=== PATIENT | female | born 1950 | race American Indian/Alaskan Native ===

== ENCOUNTER 2017-05-27 15:45 | Inpatient (IN) | payer MEDICARE, OTHER ==
[2017-05-27] MEDS ORDERED: ZOFRAN IV PRN (18:52)
[2017-05-27] MEDS ORDERED: TYLENOL PO PRN (18:52)
[2017-05-27] MEDS ORDERED: PROVENTIL IH PRN (18:52)
[2017-05-27] MEDS ORDERED: DULCOLAX PR PRN (18:52)
--- NOTE | 2017-05-27 18:54 | History and Physical Report ---
History of Present Illness Date of admission: 05/27/17 17:01 Chief complaint: I feel sick, I just dont feel good History of present illness: 66 YO female with SLE, CAD S/P Stent Placement, HTN, HLD, Hypothyroidism, Renal Failure S/P allograft renal transplant, DVT admitted directly to hospitalist service at the request of Dr. Patel for evaluation of suspected SLE flare. Pt seen and evaluated in [facility] upon arrival. Pt denies fever, chills, CP, palpitaitons, NVD, Syncope, BRBPR, skin rashes, productive cough or recent ill contacts. Past History Past Medical History: CAD, hypertension, hyperlipidemia, other (SLE) Past Surgical History: Other (renal transplant, stent) Social history: , lives with family. denies: smoking, alcohol abuse, prescription drug abuse, IV drug use Family history: hypertension Medications and Allergies Allergies Allergy/AdvReac Type Severity Reaction Status Date / Time Penicillins AdvReac Itching Verified 10/31/13 14:12 Home Medications Medication Instructions Recorded Confirmed Last Taken Type ALBUTEROL NEB's [Proventil 0.083% 2.5 mg INHALATION Q4HR PRN 10/31/13 10/31/13 Unknown History NEBS] Aspirin [Aspirin BABY CHEW TAB] 81 mg PO DAILY 10/31/13 10/31/13 Unknown History Clopidogrel Bisulfate [Plavix] 75 mg PO DAILY 10/31/13 10/31/13 Unknown History Digoxin [Lanoxin] 125 mcg PO DAILY 10/31/13 10/31/13 Unknown History Furosemide [Lasix] 40 mg PO DAILY 10/31/13 10/31/13 Unknown History Levothyroxine [Synthroid] 125 mcg PO DAILY 10/31/13 10/31/13 Unknown History Nitroglycerin [Nitrostat] 0.4 mg SL Q15MIN PRN 10/31/13 10/31/13 Unknown History Oxycodone HCl/Acetaminophen 1 tab PO Q4HR PRN 10/31/13 10/31/13 Unknown History [Endocet 10-325 mg] Potassium Chloride [K-Dur] 20 meq PO DAILY 10/31/13 10/31/13 Unknown History Venlafaxine [Effexor] 75 mg PO DAILY 10/31/13 10/31/13 Unknown History Warfarin Sodium [Coumadin] 7.5 mg PO 2XW 10/31/13 10/31/13 Unknown History Warfarin [Coumadin] 5 mg PO 5XW 10/31/13 10/31/13 Unknown History Zolpidem [Ambien] 10 mg PO QHS 10/31/13 10/31/13 Unknown History amLODIPine [Norvasc] 10 mg PO DAILY 10/31/13 10/31/13 Unknown History metFORMIN [Glucophage] 500 mg PO DAILY 10/31/13 10/31/13 Unknown History traZODone [Desyrel] 50 mg PO QHS PRN 11/01/13 11/01/13 Unknown History Review of Systems Constitutional: weakness, no weight gain, no fever, no chills, no sweats Ears, nose, mouth and throat: no ear pain, no ear discharge, no tinnitis, no decreased hearing, no nose pain, no nasal congestion Breasts: no change in shape, no swelling, no mass Cardiovascular: no chest pain, no orthopnea, no palpitations, no rapid/ irregular heart beat, no edema Respiratory: no cough, no cough with sputum, no excessive sputum, no hemoptysis , no shortness of breath Gastrointestinal: no abdominal pain, no nausea, no vomiting, no diarrhea, no constipation Genitourinary Female: no dyspareunia, no urgency, no incomplete emptying Rectal: no pain, no incontinence, no bleeding Musculoskeletal: no neck stiffness, no neck pain, no shooting arm pain, no arm numbness/tingling Integumentary: no rash, no pruritis, no redness, no sores, no wounds, no jaundice, no boils Neurological: no head injury, no weakness, no parathesias, no numbness Psychiatric: no anxiety, no memory loss, no change in sleep habits, no sleep disturbances, no insomnia Endocrine: no cold intolerance, no heat intolerance, no polyphagia Hematologic/Lymphatic: no easy bruising, no easy bleeding Allergic/Immunologic: no urticaria, no allergic rhinitis, no wheezing Exam - Constitutional General appearance: Present: mild distress - EENT Eyes: Present: PERRL ENT: hearing intact, clear oral mucosa - Neck Neck: Present: supple, normal ROM - Respiratory Respiratory: bilateral: diminished - Cardiovascular Heart Sounds: Present: S1 & S2. Absent: rub, click - Extremities Extremities: pulses symmetrical, No edema Peripheral Pulses: within normal limits - Abdominal General gastrointestinal: Present: soft, non-tender, non-distended, normal bowel sounds Female genitourinary: Present: normal - Integumentary Integumentary: Present: clear, warm, dry - Musculoskeletal Musculoskeletal: generalized weakness - Psychiatric Psychiatric: appropriate mood/affect, intact judgment & insight - Neurologic Neurologic: CNII-XII intact, moves all extremities Results - Labs CBC & Chem 7: 05/27/17 22:00 05/27/17 22:00 Assessment and Plan - Patient Problems (1) Lupus (systemic lupus erythematosus) Current Visit: Yes Status: Acute Qualifiers: Systemic lupus erythematosus type: S Systemic lupus erythematosus organ involvement: S Plan to address problem: Acute Flare: IVF, Steroids, pain control, continue medical management, CBC, CMP , EKG, supportive care. (2) Hyperlipidemia Current Visit: No Status: Chronic Qualifiers: Hyperlipidemia type: H Plan to address problem: continue statin therapy (3) Hypertension Current Visit: No Status: Chronic Qualifiers: Hypertension type: H Plan to address problem: Monitor bp q shift, resume home medication (4) Diabetes Current Visit: Yes Status: Acute Qualifiers: Diabetes mellitus type: D Diabetes mellitus complication status: D Diabetes mellitus complication detail: D Diabetic retinopathy severity: D Proliferative retinopathy type: P Diabetes mellitus macular edema: D Diabetes mellitus chcf insulin use: D Laterality: L Chronic kidney disease stage: C Plan to address problem: ADA diet, insulin, accu check (5) DVT prophylaxis Current Visit: Yes Status: Acute
[2017-05-27] MEDS ORDERED: DILAUDID IV ONE (20:12)
--- NOTE | 2017-05-27 20:46 | XRay Report ---
FINAL REPORT EXAM: XR CHEST 1V AP HISTORY: dypsnea TECHNIQUE: AP portable view of the chest. PRIORS: None. FINDINGS: There is a right-sided Port-A-Cath with the tip at the SVC right atrial junction. The cardiac silhouette is [id number] enlarged. The pulmonary vascularity appears normal. The lungs are clear. The bones and soft tissues are unremarkable. IMPRESSION: [id number] cardiomegaly. No evidence of acute CHF.
[2017-05-27] MEDS ORDERED: PERCOCET 5/325 PO PRN (22:04)
--- NOTE | 2017-05-27 22:14 | Consultation ---
History of Present Illness - Reason for Consult Consult date: 05/27/17 hypercoag Requesting physician: KEITH WEBER - History of Present Illness Thank you for this consult, patient seen/examined, record reviewed, case d/w her and her spouse at the bed side. kindly ased to see for the reasons above. She had presented to the office with geralized weakness, diffuse joint pain.Hx of SLE, now with flare up. Hx of renal transplant.SLE related pain. Past History Past Medical History: arthritis, CAD, diabetes, hypothyroidism, migraines Past Surgical History: Other (stent.) Medications and Allergies Allergies Allergy/AdvReac Type Severity Reaction Status Date / Time Penicillins AdvReac Itching Verified 10/31/13 14:12 Home Medications Medication Instructions Recorded Confirmed Last Taken Type ALBUTEROL NEB's [Proventil 0.083% 2.5 mg INHALATION Q4HR PRN 10/31/13 10/31/13 Unknown History NEBS] Aspirin [Aspirin BABY CHEW TAB] 81 mg PO DAILY 10/31/13 10/31/13 Unknown History Clopidogrel Bisulfate [Plavix] 75 mg PO DAILY 10/31/13 10/31/13 Unknown History Digoxin [Lanoxin] 125 mcg PO DAILY 10/31/13 10/31/13 Unknown History Furosemide [Lasix] 40 mg PO DAILY 10/31/13 10/31/13 Unknown History Levothyroxine [Synthroid] 125 mcg PO DAILY 10/31/13 10/31/13 Unknown History Nitroglycerin [Nitrostat] 0.4 mg SL Q15MIN PRN 10/31/13 10/31/13 Unknown History Oxycodone HCl/Acetaminophen 1 tab PO Q4HR PRN 10/31/13 10/31/13 Unknown History [Endocet 10-325 mg] Potassium Chloride [K-Dur] 20 meq PO DAILY 10/31/13 10/31/13 Unknown History Venlafaxine [Effexor] 75 mg PO DAILY 10/31/13 10/31/13 Unknown History Warfarin Sodium [Coumadin] 7.5 mg PO 2XW 10/31/13 10/31/13 Unknown History Warfarin [Coumadin] 5 mg PO 5XW 10/31/13 10/31/13 Unknown History Zolpidem [Ambien] 10 mg PO QHS 10/31/13 10/31/13 Unknown History amLODIPine [Norvasc] 10 mg PO DAILY 10/31/13 10/31/13 Unknown History metFORMIN [Glucophage] 500 mg PO DAILY 10/31/13 10/31/13 Unknown History traZODone [Desyrel] 50 mg PO QHS PRN 11/01/13 11/01/13 Unknown History Active Meds: Active Medications Acetaminophen (Tylenol) 650 mg PO Q4H PRN PRN Reason: Pain MILD(1-3)/Fever >100.5/PONCE Albuterol (Proventil) 2.5 mg IH Q4HRT PRN PRN Reason: Shortness Of Breath Bisacodyl (Dulcolax) 10 mg PA QDAY PRN PRN Reason: Constipation unrelieved by MOM Hydromorphone HCl (Dilaudid) 2 mg IV Q4HR PRN PRN Reason: Severe Pain Potassium Chloride/Dextrose/Sod Cl (D5w/0.45% Nacl/Kcl 30 Meq) 30 meq in 1,000 mls @ 75 mls/hr IV DIRECT PEPE Magnesium Hydroxide (Milk Of Magnesia) 30 ml PO Q4H PRN PRN Reason: Constipation Methylprednisolone Sodium Succinate (Solu-Medrol) 60 mg IV Q8HR PEPE Last Admin: 05/27/17 20:49 Dose: 60 mg Ondansetron HCl (Zofran) 4 mg IV Q8H PRN PRN Reason: N/V unrelieved by Reglan Oxycodone/Acetaminophen (Percocet 5/325) 2 tab PO Q6H PRN PRN Reason: Pain, Moderate (4-6) Review of Systems Constitutional: weakness, chronic pain Breasts: deferred Exam - Constitutional Vitals: Temp Pulse Resp BP Pulse Ox 99.5 F 64 20 121/65 97 05/27/17 17:49 05/27/17 17:49 05/27/17 20:45 05/27/17 17:49 05/27/17 20:41 General appearance: Present: mild distress, well-nourished - EENT Eyes: Present: PERRL ENT: hearing intact, clear oral mucosa - Neck Neck: Present: supple, normal ROM - Respiratory Respiratory effort: normal Respiratory: bilateral: CTA - Cardiovascular Heart Sounds: Present: S1 & S2. Absent: rub, click - Extremities Extremities: pulses symmetrical, No edema Peripheral Pulses: within normal limits - Abdominal General gastrointestinal: Present: soft, non-tender, non-distended, normal bowel sounds Female genitourinary: Present: deferred - Rectal Rectal Exam: deferred - Integumentary Integumentary: Present: clear, warm, dry - Musculoskeletal Musculoskeletal: gait normal, strength equal bilaterally - Psychiatric Psychiatric: appropriate mood/affect, intact judgment & insight - Neurologic Neurologic: CNII-XII intact, moves all extremities Assessment and Plan - Patient Problems (1) Chest pain at rest Current Visit: No Status: Chronic Plan to address problem: cardiology consulted. (2) Coronary artery disease Current Visit: No Status: Chronic Qualifiers: Coronary Disease-Associated Artery/Lesion type: C [place] vs. transplanted heart: N Associated angina: A Plan to address problem: cardiology consulted. (3) Lupus Current Visit: No Status: Chronic Qualifiers: Systemic lupus erythematosus type: S Systemic lupus erythematosus organ involvement: S Plan to address problem: started on steroids. (4) History of DVT (deep vein thrombosis) Current Visit: No Status: Chronic Plan to address problem: on coumadin at home, continue anticoags. (5) Renal transplant disorder Current Visit: No Status: Chronic Plan to address problem: monitor/supportive.
[2017-05-27 22:35] LABS: Hematocrit 30.7 % (30.3-42.9); Hemoglobin 10.2 gm/dl (10.1-14.3); Mean Corpuscular HGB Conc 33 % (30-34); Mean Corpuscular Hemoglobin 32 pg (28-32); Mean Corpuscular Volume 96 fl (79-97); Platelet Count 144 K/mm3 (140-440); Red Blood Count 3.19 M/mm3 (3.65-5.03); Red Cell Distribution Width 15.7 % (13.2-15.2); White Blood Count 8.2 K/mm3 (4.5-11.0)
[2017-05-27] MEDS: D5W/0.45% NACL/KCL 30 MEQ 30 MEQ/1,000 ML BAG IV SCH (22:50)
[2017-05-27 22:54] LABS: Alanine Aminotransferase 12 units/L (7-56); Albumin 3.1 g/dL (3.9-5); Albumin/Globulin Ratio 0.9 %; Alkaline Phosphatase 44 units/L (35-129); Blood Urea Nitrogen 12 mg/dL (7-17); Calcium 7.7 mg/dL (8.4-10.2); Carbon Dioxide 23 mmol/L (22-30); Glucose 151 mg/dL (65-100); Total Protein 6.5 g/dL (6.3-8.2)
[2017-05-27 22:55] LABS: Anion Gap 16 mmol/L; Chloride 108.9 mmol/L (98-107); Potassium 3.4 mmol/L (3.6-5.0); Sodium 144 mmol/L (137-145)
[2017-05-27] MEDS ORDERED: OXYCODONE HCL PO PRN (23:04)
[2017-05-27] MEDS ORDERED: DESYREL PO PRN (23:04)
[2017-05-27] MEDS ORDERED: ACETAMINOPHEN PO PRN (23:04)
[2017-05-27] MEDS ORDERED: D50W (25GM) Syringe IV PRN (23:06)
[2017-05-28 00:36] LABS: Basophils % (Manual) 0 % (0.0-1.8); Blastocytes % (Manual) 0 %; Diff Status Complete; Platelet Estimate Consistent w Auto; RBC Morphology Normal
[2017-05-28] MEDS: ROXICODONE PO PRN ×2 (00:57→07:40)
[2017-05-28] MEDS: DILAUDID IV PRN ×4 (02:46→22:54)
[2017-05-28 04:40] LABS: Bilirubin,Urine NEG (Negative); Blood,Urine NEG (Negative); Ketones,Urine NEG (Negative); Leukocyte Esterase,Urine NEG (Negative); Nitrite,Urine NEG (Negative); Protein,Urine <15 mg/dL mg/dL (Negative); Urobilinogen,Urine < 2.0 mg/dL (<2.0); WBC,Urine < 1.0 /HPF (0.0-6.0)
[2017-05-28 04:52] LABS: RBC,Urine < 1.0 /HPF (0.0-6.0)
[2017-05-28] MEDS: PERCOCET 5/325 PO PRN ×3 (05:49→20:33)
[2017-05-28] MEDS: SYNTHROID PO SCH (05:49)
[2017-05-28] MEDS: NITROSTAT SL PRN (05:59)
--- NOTE | 2017-05-28 08:48 | Consultation ---
History of Present Illness Consult date: 05/28/17 Requesting physician: KEITH WEBER Consult reason: other (cmp) History of present illness: The pt is a 66 YO female with a past medical history significant for HTN, HLP, DM, CKD, hypothyroidism, lupus, CAD s/p PCI, chronic DVT (anticoagulated on coumadin), moderate to severe MVP, s/p renal transplant. She has been seen in our office by Dr. Jain (was last seen 03/2015). Pt was admitted directly to hospitalist service at the request of Dr. Patel for evaluation of suspected SLE flare. She presented with c/o generalized pain for the past several weeks, fever and chills since yesterday AM, and precordial chest pain since yesterday AM. She presented to Dr. Patel with these complaints yesterday and was then admitted to [facility]. Cardiology has been consulted for "cardiomyopathy". On evaluation, pt denies any complaints. This AM, pt was noted to have intermittent Wenckebach AV block on telemetry. Pt asymptomatic with stable VS. LHC done 12/2012 revealed patent circumflex stent and LAD disease which was not hemodynamically significant by FFR. Echo done 12/2014 showed EF 55%, impaired relaxation, moderate to severe MVP, mild MR, mild to moderate TR, RVSP 24mmHg, moderate VT. Past History Past Medical History: CAD, hypertension, hyperlipidemia, other (SLE) Past Surgical History: Other (renal transplant, stent) Social history: , lives with family. denies: smoking, alcohol abuse, prescription drug abuse, IV drug use Family history: hypertension Medications and Allergies Allergies Allergy/AdvReac Type Severity Reaction Status Date / Time Penicillins AdvReac Itching Verified 10/31/13 14:12 Home Medications Medication Instructions Recorded Confirmed Last Taken Type ALBUTEROL NEB's [Proventil 0.083% 2.5 mg INHALATION Q4HR PRN 10/31/13 10/31/13 Unknown History NEBS] Aspirin [Aspirin BABY CHEW TAB] 81 mg PO DAILY 10/31/13 10/31/13 Unknown History Clopidogrel Bisulfate [Plavix] 75 mg PO DAILY 10/31/13 10/31/13 Unknown History Digoxin [Lanoxin] 125 mcg PO DAILY 10/31/13 10/31/13 Unknown History Furosemide [Lasix] 40 mg PO DAILY 10/31/13 10/31/13 Unknown History Levothyroxine [Synthroid] 125 mcg PO DAILY 10/31/13 10/31/13 Unknown History Nitroglycerin [Nitrostat] 0.4 mg SL Q15MIN PRN 10/31/13 10/31/13 Unknown History Oxycodone HCl/Acetaminophen 1 tab PO Q4HR PRN 10/31/13 10/31/13 Unknown History [Endocet 10-325 mg] Potassium Chloride [K-Dur] 20 meq PO DAILY 10/31/13 10/31/13 Unknown History Venlafaxine [Effexor] 75 mg PO DAILY 10/31/13 10/31/13 Unknown History Warfarin Sodium [Coumadin] 7.5 mg PO 2XW 10/31/13 10/31/13 Unknown History Warfarin [Coumadin] 5 mg PO 5XW 10/31/13 10/31/13 Unknown History Zolpidem [Ambien] 10 mg PO QHS 10/31/13 10/31/13 Unknown History amLODIPine [Norvasc] 10 mg PO DAILY 10/31/13 10/31/13 Unknown History metFORMIN [Glucophage] 500 mg PO DAILY 10/31/13 10/31/13 Unknown History traZODone [Desyrel] 50 mg PO QHS PRN 11/01/13 11/01/13 Unknown History Active Meds: Active Medications Acetaminophen (Tylenol) 650 mg PO Q4H PRN PRN Reason: Pain MILD(1-3)/Fever >100.5/PONCE Albuterol (Proventil) 2.5 mg IH Q4HRT PRN PRN Reason: Shortness Of Breath Amlodipine Besylate (Norvasc) 10 mg PO DAILY [facility] Aspirin (Baby Aspirin) 81 mg PO DAILY PEPE Bisacodyl (Dulcolax) 10 mg [place] QDAY PRN PRN Reason: Constipation unrelieved by MOM Clopidogrel Bisulfate (Plavix) 75 mg PO DAILY [facility] Dextrose (D50w (25gm) Syringe) 50 ml IV PRN PRN PRN Reason: Hypoglycemia Digoxin (Lanoxin) 0.125 mg PO DAILY@1700 PEPE Furosemide (Lasix) 40 mg PO DAILY PEPE Hydromorphone HCl (Dilaudid) 2 mg IV Q4HR PRN PRN Reason: Severe Pain Last Admin: 05/28/17 02:46 Dose: 2 mg Potassium Chloride/Dextrose/Sod Cl (D5w/0.45% Nacl/Kcl 30 Meq) 30 meq in 1,000 mls @ 75 mls/hr IV DIRECT [facility] Last Admin: 05/27/17 22:50 Dose: 75 mls/hr Insulin Aspart (Novolog) 0 units SUB-Q ACHS [facility] PRN Reason: Protocol Levothyroxine Sodium (Synthroid) 125 mcg PO DAILY@0600 [facility] Last Admin: 05/28/17 05:49 Dose: 125 mcg Magnesium Hydroxide (Milk Of Magnesia) 30 ml PO Q4H PRN PRN Reason: Constipation Methylprednisolone Sodium Succinate (Solu-Medrol) 60 mg IV Q8HR [facility] Last Admin: 05/28/17 05:50 Dose: 60 mg Nitroglycerin (Nitrostat) 0.4 mg SL Q15MIN PRN PRN Reason: Chest Pain Last Admin: 05/28/17 05:59 Dose: 0.4 mg Ondansetron HCl (Zofran) 4 mg IV Q8H PRN PRN Reason: N/V unrelieved by Reglan Oxycodone HCl (Roxicodone) 5 mg PO Q4H PRN PRN Reason: Pain Last Admin: 05/28/17 07:40 Dose: 5 mg Oxycodone/Acetaminophen (Percocet 5/325) 1 tab PO Q4H PRN PRN Reason: Pain Last Admin: 05/28/17 05:49 Dose: 1 tab Potassium Chloride (K-Dur) 20 meq PO DAILY [facility] Trazodone HCl (Desyrel) 50 mg PO QHS PRN PRN Reason: Insomnia Venlafaxine HCl (Effexor) 75 mg PO DAILY [facility] Warfarin Sodium (Coumadin) 5 mg PO MoTuWeThFr@1700 [facility] PRN Reason: Protocol Warfarin Sodium (Coumadin) 7.5 mg PO SuSa@1700 [facility] PRN Reason: Protocol Zolpidem Tartrate (Ambien) 10 mg PO QHS [facility] Review of Systems Constitutional: fever, chills, no weight loss, no weight gain Ears, nose, mouth and throat: no ear pain, no nose pain, no sinus pressure, no sinus pain Cardiovascular: chest pain, no orthopnea, no palpitations, no rapid/irregular heart beat, no edema, no syncope, no lightheadedness, no shortness of breath, no dyspnea on exertion, no leg edema Respiratory: no cough, no shortness of breath, no dyspnea on exertion, no congestion, no wheezing, no pain on inspiration Gastrointestinal: no abdominal pain, no nausea, no vomiting, no diarrhea, no constipation, no change in bowel habits Genitourinary Female: no pelvic pain, no flank pain, no dysuria, no urinary frequency, no urgency Musculoskeletal: other (generalized pain ) Integumentary: no rash, no pruritis, no redness, no sores, no wounds Neurological: no head injury, no paralysis, no weakness, no parathesias, no numbness, no tingling, no seizures, no syncope Endocrine: no cold intolerance, no heat intolerance Hematologic/Lymphatic: no easy bruising, no easy bleeding Allergic/Immunologic: no urticaria, no wheezing Physical Examination Vital Signs Temp Pulse Resp BP Pulse Ox 99.5 F 64 18 121/65 97 05/27/17 17:49 05/27/17 17:49 05/27/17 17:49 05/27/17 17:49 05/27/17 17:49 General appearance: no acute distress HEENT: Positive: PERRL, Normocephaly, Mucus Membranes Moist Neck: Positive: neck supple, trachea midline Cardiac: Positive: Reg Rate and Rhythm, S1/S2 Lungs: Positive: clear to auscultation Neuro: Positive: Grossly Intact, Cranial Nerve 2-12 Intact Abdomen: Positive: Unremarkable, Soft, Active Bowel Sounds. Negative: Tender Skin: Positive: Clear. Negative: Rash, Wound Musculoskeletal: No Fluid Collection, No Pain, Normal Range of Motion Extremities: Absent: edema Results 05/27/17 22:00 05/27/17 22:00 Cardiac Enzymes 05/27/17 Range/Units 22:00 AST 19 (5-40) units/L CBC 05/27/17 Range/Units 22:00 WBC 8.2 (4.5-11.0) K/mm3 RBC 3.19 L (3.65-5.03) M/mm3 Hgb 10.2 (10.1-14.3) gm/dl Hct 30.7 (30.3-42.9) % Plt Count 144 (140-440) K/mm3 Comprehensive Metabolic Panel 08/30/17 Range/Units 22:00 Sodium 144 (137-145) mmol/L Potassium 3.4 L (3.6-5.0) mmol/L Chloride 108.9 H (98-107) mmol/L Carbon Dioxide 23 (22-30) mmol/L BUN 12 (7-17) mg/dL Creatinine 0.5 L (0.7-1.2) mg/dL Glucose 151 H (65-100) mg/dL Calcium 7.7 L (8.4-10.2) mg/dL AST 19 (5-40) units/L ALT 12 (7-56) units/L Alkaline Phosphatase 44 (35-129) units/L Total Protein 6.5 (6.3-8.2) g/dL Albumin 3.1 L (3.9-5) g/dL - Imaging and Cardiology Echo: report reviewed (12/2014 showed EF 55%, impaired relaxation, moderate to severe MVP, mild MR, mild to moderate TR, RVSP 24mmHg, moderate VT.) Cardiac cath: report reviewed (12/2012 revealed patent circumflex stent and LAD disease which was not hemodynamically significant by FFR.) EKG: image reviewed EKG interpretations - Telemetry EKG Rhythm: Sinus Rhythm - EKG Sinus rhythms and dysrhythmias: sinus rhythm AV and intraventricular conduction: 1 AV block Assessment and Plan Assessment: Chest pain, atypical - currently resolved; ECG with NAF. Lupus CAD, s/p PCI Intermittent Wenckebach AV block - VSS; pt asymptomatic. HTN HLP DM CKD Hypokalemia / hypocalcemia Hypothyroidism Chronic DVT - anticoagulated on coumadin Moderate to severe MVP - per echo 12/2014 s/p renal transplant Plan: Obtain digoxin level. D/c home digoxin in setting of intermittent Wenckebach AV block. It is unclear why pt has been prescribed digoxin as part of her home regimen. Avoid AV carlos blocking agents. Obtain thyroid panel in AM. From a cardiac standpoint, triple anticoagulant therapy (ASA 81, plavix and coumadin) is not necessary. DAPT may be discontinued from cardiac standpoint as pt's PCI was greater than 4 years ago and pt currently has stable CAD. At this point, anticoagulation with coumadin alone would be sufficient from a cardiac standpoint unless there is another noncardiac indication for DAPT in addition to coumadin. Will defer ultimate decision to heme/onc. F/u echo. Obtain [place]. Electrolyte replacement per primary. Cont telemetry. Assessment and plan reviewed with pt at bedside. The patient has been seen in conjunction with Dr. Blackman who agrees with the assessment and plan of care.
[2017-05-28] MEDS: NOVOLOG SUB-Q SCH ×3 (08:57→17:13)
[2017-05-28 09:15] LABS: INR 2.39 (0.87-1.13)
[2017-05-28] MEDS: PLAVIX PO SCH (09:52)
[2017-05-28] MEDS: LASIX PO SCH (09:52)
[2017-05-28] MEDS: EFFEXOR PO SCH (09:52)
[2017-05-28] MEDS: BABY ASPIRIN PO SCH (09:52)
[2017-05-28] MEDS: K-DUR PO SCH (09:53)
[2017-05-28] MEDS: NORVASC PO SCH (09:53)
[2017-05-28] MEDS ORDERED: K-DUR PO NR (10:00)
[2017-05-28] MEDS: D5W/0.45% NACL/KCL 30 MEQ 30 MEQ/1,000 ML BAG IV SCH (13:01)
[2017-05-28 14:24] LABS: Creatine Kinase 138 units/L (30-135); Creatine Kinase MB 2.7 ng/mL (0.0-4.0)
--- NOTE | 2017-05-28 16:03 | Progress Note ---
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 She has been seen in our office by Dr. Jain (was last seen ). Pt was admitted directly to hospitalist service at the request of Dr. Patel for evaluation of suspected SLE flare. She presented with c/o generalized pain for the past several weeks, fever and chills since yesterday AM , and precordial chest pain since yesterday AM. She presented to Dr. Patel with these complaints yesterday and was then admitted to [facility]. Cardiology has been consulted for "cardiomyopathy". On evaluation, pt denies any complaints. This AM, pt was noted to have intermittent Wenckebach AV block on telemetry. Pt asymptomatic with stable VS. LHC done 12/2012 revealed patent circumflex stent and LAD disease which was not hemodynamically significant by FFR. Echo done 2014 showed EF 55%, impaired relaxation, moderate to severe MVP, mild MR, mild to moderate TR, RVSP 24mmHg, moderate [place]. -SLE flare: iv steriods -Accelerated Hypertension: iv antihypertensive -Hypokalemia: replaced -IDDM with hyperglycemia: add ssi, ada diet -DLP History Interval history: Patient was seen and examined. Follow-up on current diagnosis/myalgia. Overnight uneventful. Patient denies any chest pain, shortness breath, nausea/ vomiting or severe headaches. Imaging, nursing note, chart, labs and old chart reviewed. Discussed with patient. Hospitalist Physical - Physical exam Narrative exam: GEN: WDWN, NAD, AWAKE, ALERT, ORIENTATED 3 HEENT: NCAT, EOMI, PERRL, OP Clear NECK: supple, no adenopathy, no thyromegaly, no JVD CVS/HEART: RRR, NORMAL S1S2, NO JVD, pulses present bilaterally CHEST/LUNGS: CTA B, Symmetrical chest expansion, good air entry bilaterally GI/Abdomen: soft, NTND, good bowel sounds, no guarding or rebound /Bladder: no suprapubic tenderness, no CVA or paraspinal tenderness EXT/Skin: no c/c/e, no significant edema or obvious rash MSK: FROM x 4 Neuro: CN 2-12 grossly intact, no new focal deficits Psych: calm - Constitutional Vitals: Temp Pulse Resp BP Pulse Ox 99.2 F 53 L 18 172/70 98 05/27/17 21:49 05/28/17 09:53 05/28/17 07:40 05/28/17 09:53 05/28/17 08:41 General appearance: Present: no acute distress Results - Labs CBC & Chem 7: 05/27/17 22:00 05/27/17 22:00 Labs: Laboratory Last Values WBC 8.2 K/mm3 (4.5-11.0) 05/27/17 22:00 RBC 3.19 M/mm3 (3.65-5.03) L 05/27/17 22:00 Hgb 10.2 gm/dl (10.1-14.3) 05/27/17 22:00 Hct 30.7 % (30.3-42.9) 05/27/17 22:00 MCV 96 fl (79-97) 05/27/17 22:00 MCH 32 pg (28-32) 05/27/17 22:00 MCHC 33 % (30-34) 05/27/17 22:00 RDW 15.7 % (13.2-15.2) H 05/27/17 22:00 Plt Count 144 K/mm3 (140-440) 05/27/17 22:00 Add Manual Diff Complete 05/27/17 22:00 Total Counted 100 05/27/17 22:00 Seg Neutrophils % [employer] 05/27/17 22:00 Seg Neuts % (Manual) 79.0 % (40.0-70.0) H 05/27/17 22:00 Band Neutrophils % 9.0 % 05/27/17 22:00 Lymphocytes % (Manual) 6.0 % (13.4-35.0) L 05/27/17 22:00 Reactive Lymphs % (Man) 0 % 05/27/17 22:00 Monocytes % (Manual) 5.0 % (0.0-7.3) 05/27/17 22:00 Eosinophils % (Manual) 1.0 % (0.0-4.3) 05/27/17 22:00 Basophils % (Manual) 0 % (0.0-1.8) 05/27/17 22:00 Metamyelocytes % 0 % 05/27/17 22:00 Myelocytes % 0 % 05/27/17 22:00 Promyelocytes % 0 % 05/27/17 22:00 Blast Cells % 0 % 05/27/17 22:00 Nucleated RBC % Not Reportable 05/27/17 22:00 Seg Neutrophils # Man 6.5 K/mm3 (1.8-7.7) 05/27/17 22:00 Band Neutrophils # 0.7 K/mm3 05/27/17 22:00 Lymphocytes # (Manual) 0.5 K/mm3 (1.2-5.4) L 05/27/17 22:00 Abs React Lymphs (Man) 0.0 K/mm3 05/27/17 22:00 Monocytes # (Manual) 0.4 K/mm3 (0.0-0.8) 05/27/17 22:00 Eosinophils # (Manual) 0.1 K/mm3 (0.0-0.4) 05/27/17 22:00 Basophils # (Manual) 0.0 K/mm3 (0.0-0.1) 05/27/17 22:00 Metamyelocytes # 0.0 K/mm3 05/27/17 22:00 Myelocytes # 0.0 K/mm3 05/27/17 22:00 Promyelocytes # 0.0 K/mm3 05/27/17 22:00 Blast Cells # 0.0 K/mm3 05/27/17 22:00 WBC Morphology Not Reportable 05/27/17 22:00 Hypersegmented Neuts Not Reportable 05/27/17 22:00 Hyposegmented Neuts Not Reportable 05/27/17 22:00 Hypogranular Neuts Not Reportable 05/27/17 22:00 Smudge Cells Not Reportable 05/27/17 22:00 Toxic Granulation Not Reportable 05/27/17 22:00 Toxic Vacuolation Not Reportable 05/27/17 22:00 Dohle Bodies Not Reportable 05/27/17 22:00 Pelger-Huet Anomaly Not Reportable 05/27/17 22:00 Fani Rods Not Reportable 05/27/17 22:00 Platelet Estimate Consistent w auto 05/27/17 22:00 Clumped Platelets Not Reportable 05/27/17 22:00 Plt Clumps, EDTA Not Reportable 05/27/17 22:00 Large Platelets Not Reportable 05/27/17 22:00 Giant Platelets Not Reportable 05/27/17 22:00 Platelet Satelliting Not Reportable 05/27/17 22:00 Plt Morphology Comment Not Reportable 05/27/17 22:00 RBC Morphology Normal 05/27/17 22:00 Dimorphic RBCs Not Reportable 05/27/17 22:00 Polychromasia Not Reportable 05/27/17 22:00 Hypochromasia Not Reportable 05/27/17 22:00 Poikilocytosis Not Reportable 05/27/17 22:00 Anisocytosis Not Reportable 05/27/17 22:00 Microcytosis Not Reportable 05/27/17 22:00 Macrocytosis Not Reportable 05/27/17 22:00 Spherocytes Not Reportable 05/27/17 22:00 Pappenheimer Bodies Not Reportable 05/27/17 22:00 Sickle Cells Not Reportable 05/27/17 22:00 Target Cells Not Reportable 05/27/17 22:00 Tear Drop Cells Not Reportable 05/27/17 22:00 Ovalocytes Not Reportable 05/27/17 22:00 Helmet Cells Not Reportable 05/27/17 22:00 [place] Bodies Not Reportable 05/27/17 22:00 [place] Rings Not Reportable 05/27/17 22:00 Sushant Cells Not Reportable 05/27/17 22:00 Bite Cells Not Reportable 05/27/17 22:00 Crenated Cell Not Reportable 05/27/17 22:00 Elliptocytes Not Reportable 05/27/17 22:00 Acanthocytes (Spur) Not Reportable 05/27/17 22:00 Rouleaux Not Reportable 05/27/17 22:00 Hemoglobin C Crystals Not Reportable 05/27/17 22:00 Schistocytes Not Reportable 05/27/17 22:00 Malaria parasites Not Reportable 05/27/17 22:00 [place] Bodies Not Reportable 05/27/17 22:00 Hem Pathologist Commnt No 05/27/17 22:00 PT 26.2 Sec. (12.2-14.9) H 05/28/17 08:32 INR 2.39 (0.87-1.13) H 05/28/17 08:32 Sodium 144 mmol/L (137-145) 05/27/17 22:00 Potassium 3.4 mmol/L (3.6-5.0) L 05/27/17 22:00 Chloride 108.9 mmol/L (98-107) H 05/27/17 22:00 Carbon Dioxide 23 mmol/L (22-30) 05/27/17 22:00 Anion Gap 16 mmol/L 05/27/17 22:00 BUN 12 mg/dL (7-17) 05/27/17 22:00 Creatinine 0.5 mg/dL (0.7-1.2) L 05/27/17 22:00 Estimated GFR > 60 ml/min 05/27/17 22:00 BUN/Creatinine Ratio 24.00 % 05/27/17 22:00 Glucose 151 mg/dL (65-100) H 05/27/17 22:00 POC Glucose 155 (70-105) H 05/28/17 11:34 Calcium 7.7 mg/dL (8.4-10.2) L 05/27/17 22:00 Total Bilirubin 0.40 mg/dL (0.1-1.2) 05/27/17 22:00 AST 19 units/L (5-40) 05/27/17 22:00 ALT 12 units/L (7-56) 05/27/17 22:00 Alkaline Phosphatase 44 units/L (35-129) 05/27/17 22:00 Total Creatine Kinase 138 units/L (30-135) H 05/28/17 13:46 CK-MB (CK-2) 2.7 ng/mL (0.0-4.0) 05/28/17 13:46 CK-MB (CK-2) Rel Index 1.9 (0-4) 05/28/17 13:46 Troponin T < 0.010 ng/mL (0.00-0.029) 05/28/17 13:46 Total Protein 6.5 g/dL (6.3-8.2) 05/27/17 22:00 Albumin 3.1 g/dL (3.9-5) L 05/27/17 22:00 Albumin/Globulin Ratio 0.9 % 05/27/17 22:00 Urine Color Yellow (Yellow) 05/27/17 Unknown Urine Turbidity Clear (Clear) 05/27/17 Unknown Urine pH 7.0 (5.0-7.0) 05/27/17 Unknown Ur Specific [place] 1.015 (1.003-1.030) 05/27/17 Unknown Urine Protein <15 mg/dl mg/dL (Negative) 05/27/17 Unknown Urine Glucose (UA) Neg mg/dL (Negative) 05/27/17 Unknown Urine Ketones Neg mg/dL (Negative) 05/27/17 Unknown Urine Blood Neg (Negative) 05/27/17 Unknown Urine Nitrite Neg (Negative) 05/27/17 Unknown Urine Bilirubin Neg (Negative) 05/27/17 Unknown Urine Urobilinogen < 2.0 mg/dL (<2.0) 05/27/17 Unknown Ur Leukocyte Esterase Neg (Negative) 05/27/17 Unknown Urine WBC (Auto) < 1.0 /HPF (0.0-6.0) 05/27/17 Unknown Urine RBC (Auto) < 1.0 /HPF (0.0-6.0) 05/27/17 Unknown U Epithel Cells (Auto) 1.0 /HPF (0-13.0) 05/27/17 Unknown Digoxin 0.4 ng/mL (0.9-2.0) L 05/28/17 13:46
[2017-05-28] MEDS ORDERED: LANOXIN PO SCH (17:00)
[2017-05-28] MEDS: COUMADIN PO SCH (17:08)
[2017-05-28] MEDS: AMBIEN PO SCH (22:55)
[2017-05-29] MEDS: D5W/0.45% NACL/KCL 30 MEQ 30 MEQ/1,000 ML BAG IV SCH ×2 (01:50→19:08)
[2017-05-29 05:58] LABS: INR 2.38 (0.87-1.13)
[2017-05-29] MEDS: DILAUDID IV PRN ×4 (07:17→23:13)
--- NOTE | 2017-05-29 08:57 | Progress Note ---
Assessment and Plan Assessment: Chest pain, atypical - currently resolved; ECG with NAF. Lupus CAD, s/p PCI Intermittent Wenckebach AV block - VSS; pt asymptomatic. HTN HLP DM CKD Hypokalemia / hypocalcemia Hypothyroidism Chronic DVT - anticoagulated on coumadin Moderate to severe MVP - per echo 12/2014 s/p renal transplant Plan: Avoid AV carlos blocking agents given intermittent Wenckebach AV block. Digoxin discontinued. Thyroid function WNL. F/u echo findings. From a cardiac standpoint, triple anticoagulant therapy (ASA 81, plavix and coumadin) is not necessary. DAPT may be discontinued from cardiac standpoint as pt's PCI was greater than 4 years ago and pt currently has stable CAD. At this point, anticoagulation with coumadin alone would be sufficient from a cardiac standpoint unless there is another noncardiac indication for DAPT in addition to coumadin. Will defer ultimate decision to heme/onc. The patient has been seen in conjunction with Dr. Blackman who agrees with the assessment and plan of care. Subjective Date of service: 05/29/17 Principal diagnosis: atypical chest pain Interval history: The patient is resting comfortably in bed. No new complaints. Sinus rhythm on the monitor. Objective Last Vital Signs Temp 99.2 F 05/27/17 21:49 Pulse 57 L 05/29/17 10:11 Resp 18 05/28/17 07:40 BP 145/67 05/29/17 10:11 Pulse Ox 98 05/29/17 08:29 - Physical Examination General: No Apparent Distress HEENT: Positive: PERRL, Normocephaly, Mucus Membranes Moist Neck: Positive: neck supple, trachea midline Cardiac: Positive: Reg Rate and Rhythm, S1/S2 Lungs: Positive: clear to auscultation Neuro: Positive: Grossly Intact, Cranial Nerve 2-12 Intact Abdomen: Positive: Unremarkable, Soft, Active Bowel Sounds. Negative: Tender Skin: Positive: Clear. Negative: Rash, Wound Musculoskeletal: No Fluid Collection, No Pain, Normal Range of Motion Extremities: Absent: edema - Labs and Meds Cardiac Enzymes 05/28/17 Range/Units 13:46 CK-MB (CK-2) 2.7 (0.0-4.0) ng/mL Coagulation 05/28/17 05/29/17 Range/Units 08:32 04:00 PT 26.2 H 27.3 H (12.2-14.9) Sec. INR 2.39 H 2.38 H (0.87-1.13) - Imaging and Cardiology EKG: image reviewed Echo: report reviewed (12/2014 showed EF 55%, impaired relaxation, moderate to severe MVP, mild MR, mild to moderate TR, RVSP 24mmHg, moderate [place].) Cardiac cath: report reviewed (12/2012 revealed patent circumflex stent and LAD disease which was not hemodynamically significant by FFR.) - Telemetry EKG Rhythm: Sinus Rhythm - EKG Sinus rhythms and dysrhythmias: sinus rhythm AV and intraventricular conduction: 1 AV block
[2017-05-29] MEDS: NOVOLOG SUB-Q SCH ×4 (09:44→22:21)
[2017-05-29] MEDS: NORVASC PO SCH (10:11)
[2017-05-29] MEDS: PLAVIX PO SCH (10:11)
[2017-05-29] MEDS: PERCOCET 5/325 PO PRN ×2 (10:12→17:23)
[2017-05-29] MEDS: EFFEXOR PO SCH (10:13)
[2017-05-29] MEDS: BABY ASPIRIN PO SCH (10:14)
[2017-05-29] MEDS: LASIX PO SCH (10:14)
[2017-05-29] MEDS: K-DUR PO SCH (10:17)
[2017-05-29] MEDS: MILK OF MAGNESIA PO PRN (10:29)
--- NOTE | 2017-05-29 15:23 | Progress Note ---
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 She has been seen in our office by Dr. Jain (was last seen ). Pt was admitted directly to hospitalist service at the request of Dr. Patel for evaluation of suspected SLE flare. She presented with c/o generalized pain for the past several weeks, fever and chills since yesterday AM , and precordial chest pain since yesterday AM. She presented to Dr. Patel with these complaints yesterday and was then admitted to [facility]. Cardiology has been consulted for "cardiomyopathy". On evaluation, pt denies any complaints. This AM, pt was noted to have intermittent Wenckebach AV block on telemetry. Pt asymptomatic with stable VS. LHC done 12/2012 revealed patent circumflex stent and LAD disease which was not hemodynamically significant by FFR. Echo done 2014 showed EF 55%, impaired relaxation, moderate to severe MVP, mild MR, mild to moderate TR, RVSP 24mmHg, moderate [place]. -SLE flare: iv steriods -Accelerated Hypertension: iv antihypertensive -Hypokalemia: replaced -IDDM with hyperglycemia: add ssi, ada diet -DLP per Cardiology; "Chest pain, atypical - currently resolved; ECG with NAF. Lupus CAD, s/p PCI Intermittent Wenckebach AV block - VSS; pt asymptomatic. HTN HLP DM CKD Hypokalemia / hypocalcemia Hypothyroidism Chronic DVT - anticoagulated on coumadin Moderate to severe MVP - per echo 12/2014 s/p renal transplant Plan: Avoid AV carlos blocking agents given intermittent Wenckebach AV block. Digoxin discontinued. Thyroid function WNL. F/u echo findings. From a cardiac standpoint, triple anticoagulant therapy (ASA 81, plavix and coumadin) is not necessary. DAPT may be discontinued from cardiac standpoint as pt's PCI was greater than 4 years ago and pt currently has stable CAD. At this point, anticoagulation with coumadin alone would be sufficient from a cardiac standpoint unless there is another noncardiac indication for DAPT in addition to coumadin. Will defer ultimate decision to heme/onc. The patient has been seen in conjunction with Dr. Blackman who agrees with the assessment and plan of care." History Interval history: Patient was seen and examined. Follow-up on current diagnosis/myalgia. Overnight uneventful. Patient denies any chest pain, shortness breath, nausea/ vomiting or severe headaches. Imaging, nursing note, chart, labs and old chart reviewed. Discussed with patient. Hospitalist Physical - Physical exam Narrative exam: GEN: WDWN, NAD, AWAKE, ALERT, ORIENTATED 3 HEENT: NCAT, EOMI, PERRL, OP Clear NECK: supple, no adenopathy, no thyromegaly, no JVD CVS/HEART: RRR, NORMAL S1S2, NO JVD, pulses present bilaterally CHEST/LUNGS: CTA B, Symmetrical chest expansion, good air entry bilaterally GI/Abdomen: soft, NTND, good bowel sounds, no guarding or rebound /Bladder: no suprapubic tenderness, no CVA or paraspinal tenderness EXT/Skin: no c/c/e, no significant edema or obvious rash MSK: FROM x 4 Neuro: CN 2-12 grossly intact, no new focal deficits Psych: calm - Constitutional Vitals: Temp Pulse Resp BP Pulse Ox 99.2 F 57 L 18 145/67 98 05/27/17 21:49 05/29/17 10:11 05/28/17 07:40 05/29/17 10:11 05/29/17 08:29 General appearance: Present: no acute distress Results - Labs CBC & Chem 7: 05/27/17 22:00 05/27/17 22:00 Labs: Laboratory Last Values WBC 8.2 K/mm3 (4.5-11.0) 05/27/17 22:00 RBC 3.19 M/mm3 (3.65-5.03) L 05/27/17 22:00 Hgb 10.2 gm/dl (10.1-14.3) 05/27/17 22:00 Hct 30.7 % (30.3-42.9) 05/27/17 22:00 MCV 96 fl (79-97) 05/27/17 22:00 MCH 32 pg (28-32) 05/27/17 22:00 MCHC 33 % (30-34) 05/27/17 22:00 RDW 15.7 % (13.2-15.2) H 05/27/17 22:00 Plt Count 144 K/mm3 (140-440) 05/27/17 22:00 Add Manual Diff Complete 05/27/17 22:00 Total Counted 100 05/27/17 22:00 Seg Neutrophils % Cyber Systems Engineer 05/27/17 22:00 Seg Neuts % (Manual) 79.0 % (40.0-70.0) H 05/27/17 22:00 Band Neutrophils % 9.0 % 05/27/17 22:00 Lymphocytes % (Manual) 6.0 % (13.4-35.0) L 05/27/17 22:00 Reactive Lymphs % (Man) 0 % 05/27/17 22:00 Monocytes % (Manual) 5.0 % (0.0-7.3) 05/27/17 22:00 Eosinophils % (Manual) 1.0 % (0.0-4.3) 05/27/17 22:00 Basophils % (Manual) 0 % (0.0-1.8) 05/27/17 22:00 Metamyelocytes % 0 % 05/27/17 22:00 Myelocytes % 0 % 05/27/17 22:00 Promyelocytes % 0 % 05/27/17 22:00 Blast Cells % 0 % 05/27/17 22:00 Nucleated RBC % Not Reportable 05/27/17 22:00 Seg Neutrophils # Man 6.5 K/mm3 (1.8-7.7) 05/27/17 22:00 Band Neutrophils # 0.7 K/mm3 05/27/17 22:00 Lymphocytes # (Manual) 0.5 K/mm3 (1.2-5.4) L 05/27/17 22:00 Abs React Lymphs (Man) 0.0 K/mm3 05/27/17 22:00 Monocytes # (Manual) 0.4 K/mm3 (0.0-0.8) 05/27/17 22:00 Eosinophils # (Manual) 0.1 K/mm3 (0.0-0.4) 05/27/17 22:00 Basophils # (Manual) 0.0 K/mm3 (0.0-0.1) 05/27/17 22:00 Metamyelocytes # 0.0 K/mm3 05/27/17 22:00 Myelocytes # 0.0 K/mm3 05/27/17 22:00 Promyelocytes # 0.0 K/mm3 05/27/17 22:00 Blast Cells # 0.0 K/mm3 05/27/17 22:00 WBC Morphology Not Reportable 05/27/17 22:00 Hypersegmented Neuts Not Reportable 05/27/17 22:00 Hyposegmented Neuts Not Reportable 05/27/17 22:00 Hypogranular Neuts Not Reportable 05/27/17 22:00 Smudge Cells Not Reportable 05/27/17 22:00 Toxic Granulation Not Reportable 05/27/17 22:00 Toxic Vacuolation Not Reportable 05/27/17 22:00 Dohle Bodies Not Reportable 05/27/17 22:00 Pelger-Huet Anomaly Not Reportable 05/27/17 22:00 Fani Rods Not Reportable 05/27/17 22:00 Platelet Estimate Consistent w auto 05/27/17 22:00 Clumped Platelets Not Reportable 05/27/17 22:00 Plt Clumps, EDTA Not Reportable 05/27/17 22:00 Large Platelets Not Reportable 05/27/17 22:00 Giant Platelets Not Reportable 05/27/17 22:00 Platelet Satelliting Not Reportable 05/27/17 22:00 Plt Morphology Comment Not Reportable 05/27/17 22:00 RBC Morphology Normal 05/27/17 22:00 Dimorphic RBCs Not Reportable 05/27/17 22:00 Polychromasia Not Reportable 05/27/17 22:00 Hypochromasia Not Reportable 05/27/17 22:00 Poikilocytosis Not Reportable 05/27/17 22:00 Anisocytosis Not Reportable 05/27/17 22:00 Microcytosis Not Reportable 05/27/17 22:00 Macrocytosis Not Reportable 05/27/17 22:00 Spherocytes Not Reportable 05/27/17 22:00 Pappenheimer Bodies Not Reportable 05/27/17 22:00 Sickle Cells Not Reportable 05/27/17 22:00 Target Cells Not Reportable 05/27/17 22:00 Tear Drop Cells Not Reportable 05/27/17 22:00 Ovalocytes Not Reportable 05/27/17 22:00 Helmet Cells Not Reportable 05/27/17 22:00 [place] Bodies Not Reportable 05/27/17 22:00 [place] Rings Not Reportable 05/27/17 22:00 [place] Cells Not Reportable 05/27/17 22:00 Bite Cells Not Reportable 05/27/17 22:00 Crenated Cell Not Reportable 05/27/17 22:00 Elliptocytes Not Reportable 05/27/17 22:00 Acanthocytes (Spur) Not Reportable 05/27/17 22:00 Rouleaux Not Reportable 05/27/17 22:00 Hemoglobin C Crystals Not Reportable 05/27/17 22:00 Schistocytes Not Reportable 05/27/17 22:00 Malaria parasites Not Reportable 05/27/17 22:00 [place] Bodies Not Reportable 05/27/17 22:00 Hem Pathologist Commnt No 05/27/17 22:00 PT 27.3 Sec. (12.2-14.9) H 05/29/17 04:00 INR 2.38 (0.87-1.13) H 05/29/17 04:00 Sodium 144 mmol/L (137-145) 05/27/17 22:00 Potassium 3.4 mmol/L (3.6-5.0) L 05/27/17 22:00 Chloride 108.9 mmol/L (98-107) H 05/27/17 22:00 Carbon Dioxide 23 mmol/L (22-30) 05/27/17 22:00 Anion Gap 16 mmol/L 05/27/17 22:00 BUN 12 mg/dL (7-17) 05/27/17 22:00 Creatinine 0.5 mg/dL (0.7-1.2) L 05/27/17 22:00 Estimated GFR > 60 ml/min 05/27/17 22:00 BUN/Creatinine Ratio 24.00 % 05/27/17 22:00 Glucose 151 mg/dL (65-100) H 05/27/17 22:00 POC Glucose 120 (70-105) H 05/29/17 11:51 Calcium 7.7 mg/dL (8.4-10.2) L 05/27/17 22:00 Magnesium 1.90 mg/dL (1.7-2.3) 05/28/17 20:40 Total Bilirubin 0.40 mg/dL (0.1-1.2) 05/27/17 22:00 AST 19 units/L (5-40) 05/27/17 22:00 ALT 12 units/L (7-56) 05/27/17 22:00 Alkaline Phosphatase 44 units/L (35-129) 05/27/17 22:00 Total Creatine Kinase 138 units/L (30-135) H 05/28/17 13:46 CK-MB (CK-2) 2.7 ng/mL (0.0-4.0) 05/28/17 13:46 CK-MB (CK-2) Rel Index 1.9 (0-4) 05/28/17 13:46 Troponin T < 0.010 ng/mL (0.00-0.029) 05/28/17 13:46 Total Protein 6.5 g/dL (6.3-8.2) 05/27/17 22:00 Albumin 3.1 g/dL (3.9-5) L 05/27/17 22:00 Albumin/Globulin Ratio 0.9 % 05/27/17 22:00 TSH 0.440 mlU/mL (0.270-4.200) 05/29/17 04:00 Free T4 1.03 ng/dL (0.76-1.46) 05/29/17 04:00 Urine Color Yellow (Yellow) 05/27/17 Unknown Urine Turbidity Clear (Clear) 05/27/17 Unknown Urine pH 7.0 (5.0-7.0) 05/27/17 Unknown Ur Specific [place] 1.015 (1.003-1.030) 05/27/17 Unknown Urine Protein <15 mg/dl mg/dL (Negative) 05/27/17 Unknown Urine Glucose (UA) Neg mg/dL (Negative) 05/27/17 Unknown Urine Ketones Neg mg/dL (Negative) 05/27/17 Unknown Urine Blood Neg (Negative) 05/27/17 Unknown Urine Nitrite Neg (Negative) 05/27/17 Unknown Urine Bilirubin Neg (Negative) 05/27/17 Unknown Urine Urobilinogen < 2.0 mg/dL (<2.0) 05/27/17 Unknown Ur Leukocyte Esterase Neg (Negative) 05/27/17 Unknown Urine WBC (Auto) < 1.0 /HPF (0.0-6.0) 05/27/17 Unknown Urine RBC (Auto) < 1.0 /HPF (0.0-6.0) 05/27/17 Unknown U Epithel Cells (Auto) 1.0 /HPF (0-13.0) 05/27/17 Unknown Digoxin 0.4 ng/mL (0.9-2.0) L 05/28/17 13:46
[2017-05-29] MEDS: COUMADIN PO SCH (17:22)
[2017-05-29] MEDS: MIRALAX 3350 PO SCH (17:24)
[2017-05-29] MEDS: SYNTHROID PO SCH (22:21)
[2017-05-29] MEDS: AMBIEN PO SCH (23:12)
[2017-05-30] MEDS: PERCOCET 5/325 PO PRN ×3 (02:24→20:56)
[2017-05-30] MEDS: DILAUDID IV PRN ×4 (04:01→22:59)
[2017-05-30] MEDS: MILK OF MAGNESIA PO PRN (04:33)
[2017-05-30] MEDS: SYNTHROID PO SCH (05:48)
[2017-05-30 06:18] LABS: INR 5.36 (0.87-1.13)
[2017-05-30] MEDS: MIRALAX 3350 PO SCH ×2 (08:32→10:00)
[2017-05-30] MEDS: NORVASC PO SCH ×2 (08:33→10:00)
[2017-05-30] MEDS: EFFEXOR PO SCH ×2 (08:35→10:00)
[2017-05-30] MEDS: K-DUR PO SCH ×2 (08:35→10:00)
[2017-05-30] MEDS: BABY ASPIRIN PO SCH ×2 (08:36→10:00)
[2017-05-30] MEDS: ROXICODONE PO PRN (08:36)
[2017-05-30] MEDS: PLAVIX PO SCH ×2 (08:37→10:00)
[2017-05-30] MEDS: LASIX PO SCH ×2 (08:37→10:00)
[2017-05-30] MEDS: NOVOLOG SUB-Q SCH ×4 (08:39→22:00)
[2017-05-30] MEDS ORDERED: COUMADIN NO DOSE TODAY PO ONE (11:14)
--- NOTE | 2017-05-30 11:17 | Progress Note ---
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 She has been seen in our office by Dr. Jain (was last seen ). Pt was admitted directly to hospitalist service at the request of Dr. Patel for evaluation of suspected SLE flare. She presented with c/o generalized pain for the past several weeks, fever and chills since yesterday AM , and precordial chest pain since yesterday AM. She presented to Dr. Patel with these complaints yesterday and was then admitted to [facility]. Cardiology has been consulted for "cardiomyopathy". On evaluation, pt denies any complaints. This AM, pt was noted to have intermittent Wenckebach AV block on telemetry. Pt asymptomatic with stable VS. LHC done 12/2012 revealed patent circumflex stent and LAD disease which was not hemodynamically significant by FFR. Echo done 2014 showed EF 55%, impaired relaxation, moderate to severe MVP, mild MR, mild to moderate TR, RVSP 24mmHg, moderate [place]. -SLE flare: iv steriods -Chronic DVT with supratherapeutic INR: hold Warfarin today -Accelerated Hypertension: iv antihypertensive -Hypokalemia: replaced -IDDM with hyperglycemia: add ssi, ada diet -DLP per Cardiology; "Chest pain, atypical - currently resolved; ECG with NAF. Lupus CAD, s/p PCI Intermittent Wenckebach AV block - VSS; pt asymptomatic. HTN HLP DM CKD Hypokalemia / hypocalcemia Hypothyroidism Chronic DVT - anticoagulated on coumadin Moderate to severe MVP - per echo 12/2014 s/p renal transplant Plan: Avoid AV carlos blocking agents given intermittent Wenckebach AV block. Digoxin discontinued. Thyroid function WNL. F/u echo findings. From a cardiac standpoint, triple anticoagulant therapy (ASA 81, plavix and coumadin) is not necessary. DAPT may be discontinued from cardiac standpoint as pt's PCI was greater than 4 years ago and pt currently has stable CAD. At this point, anticoagulation with coumadin alone would be sufficient from a cardiac standpoint unless there is another noncardiac indication for DAPT in addition to coumadin. Will defer ultimate decision to heme/onc. The patient has been seen in conjunction with Dr. Blackman who agrees with the assessment and plan of care." History Interval history: Patient was seen and examined. Follow-up on current diagnosis/myalgia. Overnight uneventful. Patient denies any chest pain, shortness breath, nausea/ vomiting or severe headaches. Imaging, nursing note, chart, labs and old chart reviewed. Discussed with patient. Hospitalist Physical - Physical exam Narrative exam: GEN: WDWN, NAD, AWAKE, ALERT, ORIENTATED 3 HEENT: NCAT, EOMI, PERRL, OP Clear NECK: supple, no adenopathy, no thyromegaly, no JVD CVS/HEART: RRR, NORMAL S1S2, NO JVD, pulses present bilaterally CHEST/LUNGS: CTA B, Symmetrical chest expansion, good air entry bilaterally GI/Abdomen: soft, NTND, good bowel sounds, no guarding or rebound /Bladder: no suprapubic tenderness, no CVA or paraspinal tenderness EXT/Skin: no c/c/e, no significant edema or obvious rash MSK: FROM x 4 Neuro: CN 2-12 grossly intact, no new focal deficits Psych: calm - Constitutional Vitals: Temp Pulse Resp BP Pulse Ox 99.5 F 59 L 20 144/79 97 05/30/17 10:05/30/17 10:05/30/17 04:01 05/30/17 10:05/29/17 22:00 General appearance: Present: no acute distress Results - Labs CBC & Chem 7: 05/27/17 22:00 05/27/17 22:00 Labs: Laboratory Last Values WBC 8.2 K/mm3 (4.5-11.0) 05/27/17 22:00 RBC 3.19 M/mm3 (3.65-5.03) L 05/27/17 22:00 Hgb 10.2 gm/dl (10.1-14.3) 05/27/17 22:00 Hct 30.7 % (30.3-42.9) 05/27/17 22:00 MCV 96 fl (79-97) 05/27/17 22:00 MCH 32 pg (28-32) 05/27/17 22:00 MCHC 33 % (30-34) 05/27/17 22:00 RDW 15.7 % (13.2-15.2) H 05/27/17 22:00 Plt Count 144 K/mm3 (140-440) 05/27/17 22:00 Add Manual Diff Complete 05/27/17 22:00 Total Counted 100 05/27/17 22:00 Seg Neutrophils % Clinical Molecular Geneticist 05/27/17 22:00 Seg Neuts % (Manual) 79.0 % (40.0-70.0) H 05/27/17 22:00 Band Neutrophils % 9.0 % 05/27/17 22:00 Lymphocytes % (Manual) 6.0 % (13.4-35.0) L 05/27/17 22:00 Reactive Lymphs % (Man) 0 % 05/27/17 22:00 Monocytes % (Manual) 5.0 % (0.0-7.3) 05/27/17 22:00 Eosinophils % (Manual) 1.0 % (0.0-4.3) 05/27/17 22:00 Basophils % (Manual) 0 % (0.0-1.8) 05/27/17 22:00 Metamyelocytes % 0 % 05/27/17 22:00 Myelocytes % 0 % 05/27/17 22:00 Promyelocytes % 0 % 05/27/17 22:00 Blast Cells % 0 % 05/27/17 22:00 Nucleated RBC % Not Reportable 05/27/17 22:00 Seg Neutrophils # Man 6.5 K/mm3 (1.8-7.7) 05/27/17 22:00 Band Neutrophils # 0.7 K/mm3 05/27/17 22:00 Lymphocytes # (Manual) 0.5 K/mm3 (1.2-5.4) L 05/27/17 22:00 Abs React Lymphs (Man) 0.0 K/mm3 05/27/17 22:00 Monocytes # (Manual) 0.4 K/mm3 (0.0-0.8) 05/27/17 22:00 Eosinophils # (Manual) 0.1 K/mm3 (0.0-0.4) 05/27/17 22:00 Basophils # (Manual) 0.0 K/mm3 (0.0-0.1) 05/27/17 22:00 Metamyelocytes # 0.0 K/mm3 05/27/17 22:00 Myelocytes # 0.0 K/mm3 05/27/17 22:00 Promyelocytes # 0.0 K/mm3 05/27/17 22:00 Blast Cells # 0.0 K/mm3 05/27/17 22:00 WBC Morphology Not Reportable 05/27/17 22:00 Hypersegmented Neuts Not Reportable 05/27/17 22:00 Hyposegmented Neuts Not Reportable 05/27/17 22:00 Hypogranular Neuts Not Reportable 05/27/17 22:00 Smudge Cells Not Reportable 05/27/17 22:00 Toxic Granulation Not Reportable 05/27/17 22:00 Toxic Vacuolation Not Reportable 05/27/17 22:00 Dohle Bodies Not Reportable 05/27/17 22:00 Pelger-Huet Anomaly Not Reportable 05/27/17 22:00 Fani Rods Not Reportable 05/27/17 22:00 Platelet Estimate Consistent w auto 05/27/17 22:00 Clumped Platelets Not Reportable 05/27/17 22:00 Plt Clumps, EDTA Not Reportable 05/27/17 22:00 Large Platelets Not Reportable 05/27/17 22:00 Giant Platelets Not Reportable 05/27/17 22:00 Platelet Satelliting Not Reportable 05/27/17 22:00 Plt Morphology Comment Not Reportable 05/27/17 22:00 RBC Morphology Normal 05/27/17 22:00 Dimorphic RBCs Not Reportable 05/27/17 22:00 Polychromasia Not Reportable 05/27/17 22:00 Hypochromasia Not Reportable 05/27/17 22:00 Poikilocytosis Not Reportable 05/27/17 22:00 Anisocytosis Not Reportable 05/27/17 22:00 Microcytosis Not Reportable 05/27/17 22:00 Macrocytosis Not Reportable 05/27/17 22:00 Spherocytes Not Reportable 05/27/17 22:00 Pappenheimer Bodies Not Reportable 05/27/17 22:00 Sickle Cells Not Reportable 05/27/17 22:00 Target Cells Not Reportable 05/27/17 22:00 Tear Drop Cells Not Reportable 05/27/17 22:00 Ovalocytes Not Reportable 05/27/17 22:00 Helmet Cells Not Reportable 05/27/17 22:00 [place] Bodies Not Reportable 05/27/17 22:00 [place] Rings Not Reportable 05/27/17 22:00 [place] Cells Not Reportable 05/27/17 22:00 Bite Cells Not Reportable 05/27/17 22:00 Crenated Cell Not Reportable 05/27/17 22:00 Elliptocytes Not Reportable 05/27/17 22:00 Acanthocytes (Spur) Not Reportable 05/27/17 22:00 Rouleaux Not Reportable 05/27/17 22:00 Hemoglobin C Crystals Not Reportable 05/27/17 22:00 Schistocytes Not Reportable 05/27/17 22:00 Malaria parasites Not Reportable 05/27/17 22:00 [place] Bodies Not Reportable 05/27/17 22:00 Hem Pathologist Commnt No 05/27/17 22:00 PT 51.9 Sec. (12.2-14.9) H 05/30/17 Unknown INR 5.36 (0.87-1.13) H* 05/30/17 Unknown Sodium 144 mmol/L (137-145) 05/27/17 22:00 Potassium 3.4 mmol/L (3.6-5.0) L 05/27/17 22:00 Chloride 108.9 mmol/L (98-107) H 05/27/17 22:00 Carbon Dioxide 23 mmol/L (22-30) 05/27/17 22:00 Anion Gap 16 mmol/L 05/27/17 22:00 BUN 12 mg/dL (7-17) 05/27/17 22:00 Creatinine 0.5 mg/dL (0.7-1.2) L 05/27/17 22:00 Estimated GFR > 60 ml/min 05/27/17 22:00 BUN/Creatinine Ratio 24.00 % 05/27/17 22:00 Glucose 151 mg/dL (65-100) H 05/27/17 22:00 POC Glucose 151 (70-105) H 05/30/17 07:40 Calcium 7.7 mg/dL (8.4-10.2) L 05/27/17 22:00 Magnesium 1.90 mg/dL (1.7-2.3) 05/28/17 20:40 Total Bilirubin 0.40 mg/dL (0.1-1.2) 05/27/17 22:00 AST 19 units/L (5-40) 05/27/17 22:00 ALT 12 units/L (7-56) 05/27/17 22:00 Alkaline Phosphatase 44 units/L (35-129) 05/27/17 22:00 Total Creatine Kinase 138 units/L (30-135) H 05/28/17 13:46 CK-MB (CK-2) 2.7 ng/mL (0.0-4.0) 05/28/17 13:46 CK-MB (CK-2) Rel Index 1.9 (0-4) 05/28/17 13:46 Troponin T < 0.010 ng/mL (0.00-0.029) 05/28/17 13:46 Total Protein 6.5 g/dL (6.3-8.2) 05/27/17 22:00 Albumin 3.1 g/dL (3.9-5) L 05/27/17 22:00 Albumin/Globulin Ratio 0.9 % 05/27/17 22:00 TSH 0.440 mlU/mL (0.270-4.200) 05/29/17 04:00 Free T4 1.03 ng/dL (0.76-1.46) 05/29/17 04:00 Urine Color Yellow (Yellow) 05/27/17 Unknown Urine Turbidity Clear (Clear) 05/27/17 Unknown Urine pH 7.0 (5.0-7.0) 05/27/17 Unknown Ur Specific [place] 1.015 (1.003-1.030) 05/27/17 Unknown Urine Protein <15 mg/dl mg/dL (Negative) 05/27/17 Unknown Urine Glucose (UA) Neg mg/dL (Negative) 05/27/17 Unknown Urine Ketones Neg mg/dL (Negative) 05/27/17 Unknown Urine Blood Neg (Negative) 05/27/17 Unknown Urine Nitrite Neg (Negative) 05/27/17 Unknown Urine Bilirubin Neg (Negative) 05/27/17 Unknown Urine Urobilinogen < 2.0 mg/dL (<2.0) 05/27/17 Unknown Ur Leukocyte Esterase Neg (Negative) 05/27/17 Unknown Urine WBC (Auto) < 1.0 /HPF (0.0-6.0) 05/27/17 Unknown Urine RBC (Auto) < 1.0 /HPF (0.0-6.0) 05/27/17 Unknown U Epithel Cells (Auto) 1.0 /HPF (0-13.0) 05/27/17 Unknown Digoxin 0.4 ng/mL (0.9-2.0) L 05/28/17 13:46
--- NOTE | 2017-05-30 13:18 | Progress Note ---
Assessment and Plan Add Imdur. - Patient Problems (1) Atypical chest pain Current Visit: Yes Status: Acute (2) [place] type 1 second degree AV block Current Visit: Yes Status: Acute (3) CAD (coronary artery disease) Current Visit: Yes Status: Chronic Qualifiers: Coronary Disease-Associated Artery/Lesion type: [place] artery [place] vs. transplanted heart: N Associated angina: A (4) Stented coronary artery Current Visit: Yes Status: Chronic (5) Renal transplant recipient Current Visit: Yes Status: Chronic (6) MVP (mitral valve prolapse) Current Visit: Yes Status: Chronic (7) H/O deep venous thrombosis Current Visit: Yes Status: Chronic (8) CKD (chronic kidney disease) Current Visit: Yes Status: Chronic Qualifiers: Chronic kidney disease stage: C (9) Hypertension Current Visit: Yes Status: Chronic Qualifiers: Hypertension type: H (10) Diabetes mellitus Current Visit: Yes Status: Chronic Qualifiers: Diabetes mellitus type: type 2 Diabetes mellitus complication status: D Diabetes mellitus complication detail: D Diabetic retinopathy severity: D Proliferative retinopathy type: P Diabetes mellitus macular edema: D Diabetes mellitus terminal manager insulin use: D Laterality: L Chronic kidney disease stage: C Subjective Date of service: 05/30/17 Principal diagnosis: Atypical chest pain, Intermittent type 1 2nd AVB, CAD s/p PCI, Lupus, CKD Interval history: She still has chest and back pain. She claims that she experiences generalized aches and pains related to her lupus. Objective Vital Signs Temp Pulse Resp Resp BP BP Pulse Ox 05/30/17 10:17 99.5 F 59 L 144/79 05/30/17 08:33 59 L 144/79 05/30/17 04:01 20 05/30/17 02:24 20 05/29/17 23:13 20 05/29/17 22:00 99.9 F H 60 18 20 150/82 97 - Physical Examination General: No Apparent Distress HEENT: Positive: EOMI, Normocephaly, Mucus Membranes Moist Neck: Positive: neck supple, trachea midline Cardiac: Positive: Reg Rate and Rhythm, S1/S2 Lungs: Positive: clear to auscultation Neuro: Positive: Grossly Intact Abdomen: Positive: Soft, Active Bowel Sounds. Negative: Tender Skin: Positive: Clear. Negative: Rash Musculoskeletal: Normal Range of Motion Extremities: Absent: edema - Labs and Meds Coagulation 05/30/17 Range/Units Unknown PT 51.9 H (12.2-14.9) Sec. INR 5.36 H* (0.87-1.13) - Imaging and Cardiology EKG: image reviewed Echo: report reviewed (12/2014 showed EF 55%, impaired relaxation, moderate to severe MVP, mild MR, mild to moderate TR, RVSP 24mmHg, moderate [place].) Cardiac cath: report reviewed (12/2012 revealed patent circumflex stent and LAD disease which was not hemodynamically significant by FFR.) - EKG Sinus rhythms and dysrhythmias: sinus rhythm AV and intraventricular conduction: 1 AV block
[2017-05-30] MEDS: IMDUR PO SCH (14:05)
[2017-05-30] MEDS ORDERED: COUMADIN PO SCH (17:00)
[2017-05-30] MEDS: AMBIEN PO SCH (22:58)
[2017-05-31] MEDS: PERCOCET 5/325 PO PRN ×2 (02:41→08:50)
[2017-05-31] MEDS: ROXICODONE PO PRN (02:44)
[2017-05-31 05:37] LABS: Hematocrit 33.8 % (30.3-42.9); Hemoglobin 11.3 gm/dl (10.1-14.3); Mean Corpuscular HGB Conc 34 % (30-34); Mean Corpuscular Hemoglobin 32 pg (28-32); Mean Corpuscular Volume 96 fl (79-97); Platelet Count 209 K/mm3 (140-440); Red Blood Count 3.52 M/mm3 (3.65-5.03); Red Cell Distribution Width 15.3 % (13.2-15.2)
[2017-05-31 05:50] LABS: INR 1.88 (0.87-1.13)
[2017-05-31] MEDS: DILAUDID IV PRN ×4 (05:59→22:40)
[2017-05-31] MEDS: SYNTHROID PO SCH (05:59)
[2017-05-31 06:14] LABS: Anion Gap 16 mmol/L; BUN/Creatinine Ratio 34.28; Blood Urea Nitrogen 24 mg/dL (7-17); Carbon Dioxide 29 mmol/L (22-30); Chloride 93.1 mmol/L (98-107); Glucose 127 mg/dL (65-100); Sodium 133 mmol/L (137-145)
[2017-05-31 06:25] LABS: Calcium 9.9 mg/dL (8.4-10.2)
[2017-05-31] MEDS: NITROSTAT SL PRN (07:12)
[2017-05-31] MEDS: NOVOLOG SUB-Q SCH ×4 (08:35→22:40)
[2017-05-31] MEDS: MIRALAX 3350 PO SCH ×2 (08:36→10:56)
[2017-05-31] MEDS: IMDUR PO SCH ×3 (08:38→17:12)
[2017-05-31] MEDS: EFFEXOR PO SCH ×2 (08:39→10:54)
[2017-05-31] MEDS: LASIX PO SCH ×2 (08:39→10:56)
[2017-05-31] MEDS: PLAVIX PO SCH ×2 (08:39→10:56)
[2017-05-31] MEDS: BABY ASPIRIN PO SCH ×2 (08:40→10:54)
[2017-05-31] MEDS: NORVASC PO SCH ×2 (08:41→10:56)
--- NOTE | 2017-05-31 11:33 | Progress Note ---
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 She has been seen in our office by Dr. Jain (was last seen ). Pt was admitted directly to hospitalist service at the request of Dr. Patel for evaluation of suspected SLE flare. She presented with c/o generalized pain for the past several weeks, fever and chills since yesterday AM , and precordial chest pain since yesterday AM. She presented to Dr. Patel with these complaints yesterday and was then admitted to [facility]. Cardiology has been consulted for "cardiomyopathy". On evaluation, pt denies any complaints. This AM, pt was noted to have intermittent Wenckebach AV block on telemetry. Pt asymptomatic with stable VS. LHC done 12/2012 revealed patent circumflex stent and LAD disease which was not hemodynamically significant by FFR. Echo done 2014 showed EF 55%, impaired relaxation, moderate to severe MVP, mild MR, mild to moderate TR, RVSP 24mmHg, moderate [place]. -SLE flare: iv steriods -Chronic DVT with supratherapeutic INR: Warfarin today -Accelerated Hypertension: iv antihypertensive -Hypokalemia: replaced -IDDM with hyperglycemia: add ssi, ada diet -DLP per Cardiology; "Chest pain, atypical - currently resolved; ECG with NAF. Lupus CAD, s/p PCI Intermittent Wenckebach AV block - VSS; pt asymptomatic. HTN HLP DM CKD Hypokalemia / hypocalcemia Hypothyroidism Chronic DVT - anticoagulated on coumadin Moderate to severe MVP - per echo 12/2014 s/p renal transplant Plan: Avoid AV carlos blocking agents given intermittent Wenckebach AV block. Digoxin discontinued. Thyroid function WNL. F/u echo findings. From a cardiac standpoint, triple anticoagulant therapy (ASA 81, plavix and coumadin) is not necessary. DAPT may be discontinued from cardiac standpoint as pt's PCI was greater than 4 years ago and pt currently has stable CAD. At this point, anticoagulation with coumadin alone would be sufficient from a cardiac standpoint unless there is another noncardiac indication for DAPT in addition to coumadin. Will defer ultimate decision to heme/onc. The patient has been seen in conjunction with Dr. Blackman who agrees with the assessment and plan of care." Patient wants to resume her percocet which she takes at least 3 tabs daily, she is doing better, hopefully d/c tomorrow History Interval history: Patient was seen and examined. Follow-up on current diagnosis/myalgia. Overnight uneventful. Patient denies any chest pain, shortness breath, nausea/ vomiting or severe headaches. Imaging, nursing note, chart, labs and old chart reviewed. Discussed with patient. Hospitalist Physical - Physical exam Narrative exam: GEN: WDWN, NAD, AWAKE, ALERT, ORIENTATED 3 HEENT: NCAT, EOMI, PERRL, OP Clear NECK: supple, no adenopathy, no thyromegaly, no JVD CVS/HEART: RRR, NORMAL S1S2, NO JVD, pulses present bilaterally CHEST/LUNGS: CTA B, Symmetrical chest expansion, good air entry bilaterally GI/Abdomen: soft, NTND, good bowel sounds, no guarding or rebound /Bladder: no suprapubic tenderness, no CVA or paraspinal tenderness EXT/Skin: no c/c/e, no significant edema or obvious rash MSK: FROM x 4 Neuro: CN 2-12 grossly intact, no new focal deficits Psych: calm - Constitutional Vitals: Temp Pulse Resp BP Pulse Ox 99.3 F 63 18 143/79 98 05/31/17 09:21 05/31/17 09:21 05/31/17 09:21 05/31/17 09:21 05/31/17 09:21 General appearance: Present: no acute distress Results - Labs CBC & Chem 7: 05/31/17 05:15 05/31/17 05:15 Labs: Laboratory Last Values WBC 9.0 K/mm3 (4.5-11.0) 05/31/17 05:15 RBC 3.52 M/mm3 (3.65-5.03) L 05/31/17 05:15 Hgb 11.3 gm/dl (10.1-14.3) 05/31/17 05:15 Hct 33.8 % (30.3-42.9) 05/31/17 05:15 MCV 96 fl (79-97) 05/31/17 05:15 MCH 32 pg (28-32) 05/31/17 05:15 MCHC 34 % (30-34) 05/31/17 05:15 RDW 15.3 % (13.2-15.2) H 05/31/17 05:15 Plt Count 209 K/mm3 (140-440) 05/31/17 05:15 Add Manual Diff Complete 05/27/17 22:00 Total Counted 100 05/27/17 22:00 Seg Neutrophils % Poultry Husbandry Worker 05/27/17 22:00 Seg Neuts % (Manual) 79.0 % (40.0-70.0) H 05/27/17 22:00 Band Neutrophils % 9.0 % 05/27/17 22:00 Lymphocytes % (Manual) 6.0 % (13.4-35.0) L 05/27/17 22:00 Reactive Lymphs % (Man) 0 % 05/27/17 22:00 Monocytes % (Manual) 5.0 % (0.0-7.3) 05/27/17 22:00 Eosinophils % (Manual) 1.0 % (0.0-4.3) 05/27/17 22:00 Basophils % (Manual) 0 % (0.0-1.8) 05/27/17 22:00 Metamyelocytes % 0 % 05/27/17 22:00 Myelocytes % 0 % 05/27/17 22:00 Promyelocytes % 0 % 05/27/17 22:00 Blast Cells % 0 % 05/27/17 22:00 Nucleated RBC % Not Reportable 05/27/17 22:00 Seg Neutrophils # Man 6.5 K/mm3 (1.8-7.7) 05/27/17 22:00 Band Neutrophils # 0.7 K/mm3 05/27/17 22:00 Lymphocytes # (Manual) 0.5 K/mm3 (1.2-5.4) L 05/27/17 22:00 Abs React Lymphs (Man) 0.0 K/mm3 05/27/17 22:00 Monocytes # (Manual) 0.4 K/mm3 (0.0-0.8) 05/27/17 22:00 Eosinophils # (Manual) 0.1 K/mm3 (0.0-0.4) 05/27/17 22:00 Basophils # (Manual) 0.0 K/mm3 (0.0-0.1) 05/27/17 22:00 Metamyelocytes # 0.0 K/mm3 05/27/17 22:00 Myelocytes # 0.0 K/mm3 05/27/17 22:00 Promyelocytes # 0.0 K/mm3 05/27/17 22:00 Blast Cells # 0.0 K/mm3 05/27/17 22:00 WBC Morphology Not Reportable 05/27/17 22:00 Hypersegmented Neuts Not Reportable 05/27/17 22:00 Hyposegmented Neuts Not Reportable 05/27/17 22:00 Hypogranular Neuts Not Reportable 05/27/17 22:00 Smudge Cells Not Reportable 05/27/17 22:00 Toxic Granulation Not Reportable 05/27/17 22:00 Toxic Vacuolation Not Reportable 05/27/17 22:00 Dohle Bodies Not Reportable 05/27/17 22:00 Pelger-Huet Anomaly Not Reportable 05/27/17 22:00 Fani Rods Not Reportable 05/27/17 22:00 Platelet Estimate Consistent w auto 05/27/17 22:00 Clumped Platelets Not Reportable 05/27/17 22:00 Plt Clumps, EDTA Not Reportable 05/27/17 22:00 Large Platelets Not Reportable 05/27/17 22:00 Giant Platelets Not Reportable 05/27/17 22:00 Platelet Satelliting Not Reportable 05/27/17 22:00 Plt Morphology Comment Not Reportable 05/27/17 22:00 RBC Morphology Normal 05/27/17 22:00 Dimorphic RBCs Not Reportable 05/27/17 22:00 Polychromasia Not Reportable 05/27/17 22:00 Hypochromasia Not Reportable 05/27/17 22:00 Poikilocytosis Not Reportable 05/27/17 22:00 Anisocytosis Not Reportable 05/27/17 22:00 Microcytosis Not Reportable 05/27/17 22:00 Macrocytosis Not Reportable 05/27/17 22:00 Spherocytes Not Reportable 05/27/17 22:00 Pappenheimer Bodies Not Reportable 05/27/17 22:00 Sickle Cells Not Reportable 05/27/17 22:00 Target Cells Not Reportable 05/27/17 22:00 Tear Drop Cells Not Reportable 05/27/17 22:00 Ovalocytes Not Reportable 05/27/17 22:00 Helmet Cells Not Reportable 05/27/17 22:00 [place] Bodies Not Reportable 05/27/17 22:00 [place] Rings Not Reportable 05/27/17 22:00 [place] Cells Not Reportable 05/27/17 22:00 Bite Cells Not Reportable 05/27/17 22:00 Crenated Cell Not Reportable 05/27/17 22:00 Elliptocytes Not Reportable 05/27/17 22:00 Acanthocytes (Spur) Not Reportable 05/27/17 22:00 Rouleaux Not Reportable 05/27/17 22:00 Hemoglobin C Crystals Not Reportable 05/27/17 22:00 Schistocytes Not Reportable 05/27/17 22:00 Malaria parasites Not Reportable 05/27/17 22:00 [place] Bodies Not Reportable 05/27/17 22:00 Hem Pathologist Commnt No 05/27/17 22:00 PT 22.6 Sec. (12.2-14.9) H 05/31/17 05:15 INR 1.88 (0.87-1.13) H 05/31/17 05:15 Sodium 133 mmol/L (137-145) L D 05/31/17 05:15 Potassium 5.0 mmol/L (3.6-5.0) D 05/31/17 05:15 Chloride 93.1 mmol/L (98-107) L 05/31/17 05:15 Carbon Dioxide 29 mmol/L (22-30) 05/31/17 05:15 Anion Gap 16 mmol/L 05/31/17 05:15 BUN 24 mg/dL (7-17) H 05/31/17 05:15 Creatinine 0.7 mg/dL (0.7-1.2) 05/31/17 05:15 Estimated GFR > 60 ml/min 05/31/17 05:15 BUN/Creatinine Ratio 34.28 % 05/31/17 05:15 Glucose 127 mg/dL (65-100) H 05/31/17 05:15 POC Glucose 174 (70-105) H 05/31/17 08:27 Calcium 9.9 mg/dL (8.4-10.2) D 05/31/17 05:15 Magnesium 2.70 mg/dL (1.7-2.3) H 05/31/17 05:15 Total Bilirubin 0.40 mg/dL (0.1-1.2) 05/27/17 22:00 AST 19 units/L (5-40) 05/27/17 22:00 ALT 12 units/L (7-56) 05/27/17 22:00 Alkaline Phosphatase 44 units/L (35-129) 05/27/17 22:00 Total Creatine Kinase 138 units/L (30-135) H 05/28/17 13:46 CK-MB (CK-2) 2.7 ng/mL (0.0-4.0) 05/28/17 13:46 CK-MB (CK-2) Rel Index 1.9 (0-4) 05/28/17 13:46 Troponin T < 0.010 ng/mL (0.00-0.029) 05/28/17 13:46 Total Protein 6.5 g/dL (6.3-8.2) 05/27/17 22:00 Albumin 3.1 g/dL (3.9-5) L 05/27/17 22:00 Albumin/Globulin Ratio 0.9 % 05/27/17 22:00 TSH 0.440 mlU/mL (0.270-4.200) 05/29/17 04:00 Free T4 1.03 ng/dL (0.76-1.46) 05/29/17 04:00 Urine Color Yellow (Yellow) 05/27/17 Unknown Urine Turbidity Clear (Clear) 05/27/17 Unknown Urine pH 7.0 (5.0-7.0) 05/27/17 Unknown Ur Specific [place] 1.015 (1.003-1.030) 05/27/17 Unknown Urine Protein <15 mg/dl mg/dL (Negative) 05/27/17 Unknown Urine Glucose (UA) Neg mg/dL (Negative) 05/27/17 Unknown Urine Ketones Neg mg/dL (Negative) 05/27/17 Unknown Urine Blood Neg (Negative) 05/27/17 Unknown Urine Nitrite Neg (Negative) 05/27/17 Unknown Urine Bilirubin Neg (Negative) 05/27/17 Unknown Urine Urobilinogen < 2.0 mg/dL (<2.0) 05/27/17 Unknown Ur Leukocyte Esterase Neg (Negative) 05/27/17 Unknown Urine WBC (Auto) < 1.0 /HPF (0.0-6.0) 05/27/17 Unknown Urine RBC (Auto) < 1.0 /HPF (0.0-6.0) 05/27/17 Unknown U Epithel Cells (Auto) 1.0 /HPF (0-13.0) 05/27/17 Unknown Digoxin 0.4 ng/mL (0.9-2.0) L 05/28/17 13:46
[2017-05-31] MEDS: PERCOCET 5/325 PO SCH ×2 (13:57→20:05)
--- NOTE | 2017-05-31 16:34 | Progress Note ---
Assessment and Plan Scheduled Lexiscan stress MPI in a.m. - Patient Problems (1) Atypical chest pain Current Visit: Yes Status: Acute (2) Mobitz type 1 second degree AV block Current Visit: Yes Status: Acute (3) CAD (coronary artery disease) Current Visit: Yes Status: Chronic Qualifiers: Coronary Disease-Associated Artery/Lesion type: [place] artery [place] vs. transplanted heart: N Associated angina: A (4) Stented coronary artery Current Visit: Yes Status: Chronic (5) Renal transplant recipient Current Visit: Yes Status: Chronic (6) MVP (mitral valve prolapse) Current Visit: Yes Status: Chronic (7) H/O deep venous thrombosis Current Visit: Yes Status: Chronic (8) CKD (chronic kidney disease) Current Visit: Yes Status: Chronic Qualifiers: Chronic kidney disease stage: C (9) Lupus Current Visit: Yes Status: Chronic Qualifiers: Systemic lupus erythematosus type: S Systemic lupus erythematosus organ involvement: S (10) Hypertension Current Visit: Yes Status: Chronic Qualifiers: Hypertension type: essential hypertension Qualified Code(s): I10 - Essential (primary) hypertension (11) Diabetes mellitus Current Visit: Yes Status: Chronic Qualifiers: Diabetes mellitus type: type 2 Diabetes mellitus complication status: D Diabetes mellitus complication detail: D Diabetic retinopathy severity: D Proliferative retinopathy type: P Diabetes mellitus macular edema: D Diabetes mellitus correction insulin use: D Laterality: L Chronic kidney disease stage: C Subjective Date of service: 05/31/17 Principal diagnosis: Atypical chest pain, Intermittent type 1 2nd AVB, CAD s/p PCI, Lupus, CKD Interval history: She still experiences intermittent chest pain. She was relived with sublingual nitroglycerin this am. In NSR. Objective Vital Signs Temp Pulse Resp Resp BP BP Pulse Ox 05/31/17 10:00 72 05/31/17 09:21 99.3 F 63 18 143/79 98 05/31/17 08:41 63 143/79 05/31/17 08:38 63 143/79 05/31/17 07:12 72 142/88 05/31/17 05:59 20 05/31/17 05:34 60 05/31/17 03:44 18 05/31/17 03:41 18 05/31/17 02:44 20 05/31/17 02:41 20 05/30/17 23:29 20 05/30/17 22:59 20 05/30/17 22:00 98.6 F 67 18 20 128/79 99 05/30/17 21:56 18 05/30/17 20:56 18 05/30/17 19:10 20 - Physical Examination General: No Apparent Distress HEENT: Positive: EOMI, Normocephaly, Mucus Membranes Moist Neck: Positive: neck supple, trachea midline Cardiac: Positive: Reg Rate and Rhythm, S1/S2 Lungs: Positive: clear to auscultation Neuro: Positive: Grossly Intact Abdomen: Positive: Soft, Active Bowel Sounds. Negative: Tender Skin: Positive: Clear. Negative: Rash Musculoskeletal: Normal Range of Motion Extremities: Absent: edema - Labs and Meds Coagulation 05/31/17 Range/Units 05:15 PT 22.6 H (12.2-14.9) Sec. INR 1.88 H (0.87-1.13) CBC 05/31/17 Range/Units 05:15 WBC 9.0 (4.5-11.0) K/mm3 RBC 3.52 L (3.65-5.03) M/mm3 Hgb 11.3 (10.1-14.3) gm/dl Hct 33.8 (30.3-42.9) % Plt Count 209 (140-440) K/mm3 Comprehensive Metabolic Panel 05/31/17 Range/Units 05:15 Sodium 133 L D (137-145) mmol/L Potassium 5.0 D (3.6-5.0) mmol/L Chloride 93.1 L (98-107) mmol/L Carbon Dioxide 29 (22-30) mmol/L BUN 24 H (7-17) mg/dL Creatinine 0.7 (0.7-1.2) mg/dL Glucose 127 H (65-100) mg/dL Calcium 9.9 D (8.4-10.2) mg/dL - Imaging and Cardiology EKG: image reviewed Echo: report reviewed (12/2014 showed EF 55%, impaired relaxation, moderate to severe MVP, mild MR, mild to moderate TR, RVSP 24mmHg, moderate [place].) Cardiac cath: report reviewed (12/2012 revealed patent circumflex stent and LAD disease which was not hemodynamically significant by FFR.) - Telemetry EKG Rhythm: Sinus Rhythm AV and intraventricular conduction: 1 AV block
[2017-05-31] MEDS ORDERED: COUMADIN PO SCH (17:00)
[2017-05-31] MEDS: ROXICODONE PO SCH (20:04)
[2017-05-31] MEDS ORDERED: ROXICODONE PO PRN (22:00)
[2017-05-31] MEDS: AMBIEN PO SCH (22:43)
[2017-06-01] MEDS: DILAUDID IV PRN ×5 (02:50→22:42)
[2017-06-01] MEDS: SYNTHROID PO SCH (05:46)
[2017-06-01 07:03] LABS: INR 1.5 (0.87-1.13)
[2017-06-01] MEDS ORDERED: LEXISCAN IV ONE ×2 (08:06→08:15)
[2017-06-01] MEDS: NOVOLOG SUB-Q SCH ×4 (08:18→22:00)
[2017-06-01] MEDS: ROXICODONE PO SCH ×3 (08:52→20:53)
[2017-06-01] MEDS: PERCOCET 5/325 PO SCH ×3 (08:53→20:54)
--- NOTE | 2017-06-01 11:41 | Progress Note ---
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 She has been seen in our office by Dr. Jain (was last seen ). Pt was admitted directly to hospitalist service at the request of Dr. Patel for evaluation of suspected SLE flare. She presented with c/o generalized pain for the past several weeks, fever and chills since yesterday AM , and precordial chest pain since yesterday AM. She presented to Dr. Patel with these complaints yesterday and was then admitted to [facility]. Cardiology has been consulted for "cardiomyopathy". On evaluation, pt denies any complaints. This AM, pt was noted to have intermittent Wenckebach AV block on telemetry. Pt asymptomatic with stable VS. LHC done 12/2012 revealed patent circumflex stent and LAD disease which was not hemodynamically significant by FFR. Echo done 2014 showed EF 55%, impaired relaxation, moderate to severe MVP, mild MR, mild to moderate TR, RVSP 24mmHg, moderate [place]. -SLE flare: iv steriods -Chronic DVT with supratherapeutic INR: Warfarin today -Chest pain, msk due to costochondritis suspected: Cardiology is following -AV mobitz type 1: telemetry -Accelerated Hypertension: iv antihypertensive prn -Hypokalemia: replaced -IDDM with hyperglycemia: add ssi, ada diet -DLP -DVT prophylaxis: on Warfarin per Cardiology; "Chest pain, atypical - currently resolved; ECG with NAF. Lupus CAD, s/p PCI Intermittent Wenckebach AV block - VSS; pt asymptomatic. HTN HLP DM CKD Hypokalemia / hypocalcemia Hypothyroidism Chronic DVT - anticoagulated on coumadin Moderate to severe MVP - per echo 12/2014 s/p renal transplant Plan: Avoid AV carlos blocking agents given intermittent Wenckebach AV block. Digoxin discontinued. Thyroid function WNL. F/u echo findings. From a cardiac standpoint, triple anticoagulant therapy (ASA 81, plavix and coumadin) is not necessary. DAPT may be discontinued from cardiac standpoint as pt's PCI was greater than 4 years ago and pt currently has stable CAD. At this point, anticoagulation with coumadin alone would be sufficient from a cardiac standpoint unless there is another noncardiac indication for DAPT in addition to coumadin. Will defer ultimate decision to heme/onc. The patient has been seen in conjunction with Dr. Blackman who agrees with the assessment and plan of care." Here with Lupus flare and chest pain, stress test pending, d/c in am once cleared by Aniceto VELASQUEZ and INR improved. History Interval history: Patient was seen and examined. Follow-up on current diagnosis/myalgia. Overnight uneventful. Patient denies any chest pain, shortness breath, nausea/ vomiting or severe headaches. Imaging, nursing note, chart, labs and old chart reviewed. Discussed with patient. Hospitalist Physical - Physical exam Narrative exam: GEN: WDWN, NAD, AWAKE, ALERT, ORIENTATED 3 HEENT: NCAT, EOMI, PERRL, OP Clear NECK: supple, no adenopathy, no thyromegaly, no JVD CVS/HEART: RRR, NORMAL S1S2, NO JVD, pulses present bilaterally CHEST/LUNGS: CTA B, Symmetrical chest expansion, good air entry bilaterally GI/Abdomen: soft, NTND, good bowel sounds, no guarding or rebound /Bladder: no suprapubic tenderness, no CVA or paraspinal tenderness EXT/Skin: no c/c/e, no significant edema or obvious rash MSK: FROM x 4 Neuro: CN 2-12 grossly intact, no new focal deficits Psych: calm - Constitutional Vitals: Temp Pulse Resp BP Pulse Ox 99.5 F 94 H 18 140/79 98 05/31/17 21:00 05/31/17 22:00 06/01/17 03:20 05/31/17 21:00 05/31/17 22:00 General appearance: Present: no acute distress Results - Labs CBC & Chem 7: 05/31/17 05:15 05/31/17 05:15 Labs: Laboratory Last Values WBC 9.0 K/mm3 (4.5-11.0) 05/31/17 05:15 RBC 3.52 M/mm3 (3.65-5.03) L 05/31/17 05:15 Hgb 11.3 gm/dl (10.1-14.3) 05/31/17 05:15 Hct 33.8 % (30.3-42.9) 05/31/17 05:15 MCV 96 fl (79-97) 05/31/17 05:15 MCH 32 pg (28-32) 05/31/17 05:15 MCHC 34 % (30-34) 05/31/17 05:15 RDW 15.3 % (13.2-15.2) H 05/31/17 05:15 Plt Count 209 K/mm3 (140-440) 05/31/17 05:15 Add Manual Diff Complete 05/27/17 22:00 Total Counted 100 05/27/17 22:00 Seg Neutrophils % [employer] 05/27/17 22:00 Seg Neuts % (Manual) 79.0 % (40.0-70.0) H 05/27/17 22:00 Band Neutrophils % 9.0 % 05/27/17 22:00 Lymphocytes % (Manual) 6.0 % (13.4-35.0) L 05/27/17 22:00 Reactive Lymphs % (Man) 0 % 05/27/17 22:00 Monocytes % (Manual) 5.0 % (0.0-7.3) 05/27/17 22:00 Eosinophils % (Manual) 1.0 % (0.0-4.3) 05/27/17 22:00 Basophils % (Manual) 0 % (0.0-1.8) 05/27/17 22:00 Metamyelocytes % 0 % 05/27/17 22:00 Myelocytes % 0 % 05/27/17 22:00 Promyelocytes % 0 % 05/27/17 22:00 Blast Cells % 0 % 05/27/17 22:00 Nucleated RBC % Not Reportable 05/27/17 22:00 Seg Neutrophils # Man 6.5 K/mm3 (1.8-7.7) 05/27/17 22:00 Band Neutrophils # 0.7 K/mm3 05/27/17 22:00 Lymphocytes # (Manual) 0.5 K/mm3 (1.2-5.4) L 05/27/17 22:00 Abs React Lymphs (Man) 0.0 K/mm3 05/27/17 22:00 Monocytes # (Manual) 0.4 K/mm3 (0.0-0.8) 05/27/17 22:00 Eosinophils # (Manual) 0.1 K/mm3 (0.0-0.4) 05/27/17 22:00 Basophils # (Manual) 0.0 K/mm3 (0.0-0.1) 05/27/17 22:00 Metamyelocytes # 0.0 K/mm3 05/27/17 22:00 Myelocytes # 0.0 K/mm3 05/27/17 22:00 Promyelocytes # 0.0 K/mm3 05/27/17 22:00 Blast Cells # 0.0 K/mm3 05/27/17 22:00 WBC Morphology Not Reportable 05/27/17 22:00 Hypersegmented Neuts Not Reportable 05/27/17 22:00 Hyposegmented Neuts Not Reportable 05/27/17 22:00 Hypogranular Neuts Not Reportable 05/27/17 22:00 Smudge Cells Not Reportable 05/27/17 22:00 Toxic Granulation Not Reportable 05/27/17 22:00 Toxic Vacuolation Not Reportable 05/27/17 22:00 Dohle Bodies Not Reportable 05/27/17 22:00 Pelger-Huet Anomaly Not Reportable 05/27/17 22:00 Fani Rods Not Reportable 05/27/17 22:00 Platelet Estimate Consistent w auto 05/27/17 22:00 Clumped Platelets Not Reportable 05/27/17 22:00 Plt Clumps, EDTA Not Reportable 05/27/17 22:00 Large Platelets Not Reportable 05/27/17 22:00 Giant Platelets Not Reportable 05/27/17 22:00 Platelet Satelliting Not Reportable 05/27/17 22:00 Plt Morphology Comment Not Reportable 05/27/17 22:00 RBC Morphology Normal 05/27/17 22:00 Dimorphic RBCs Not Reportable 05/27/17 22:00 Polychromasia Not Reportable 05/27/17 22:00 Hypochromasia Not Reportable 05/27/17 22:00 Poikilocytosis Not Reportable 05/27/17 22:00 Anisocytosis Not Reportable 05/27/17 22:00 Microcytosis Not Reportable 05/27/17 22:00 Macrocytosis Not Reportable 05/27/17 22:00 Spherocytes Not Reportable 05/27/17 22:00 Pappenheimer Bodies Not Reportable 05/27/17 22:00 Sickle Cells Not Reportable 05/27/17 22:00 Target Cells Not Reportable 05/27/17 22:00 Tear Drop Cells Not Reportable 05/27/17 22:00 Ovalocytes Not Reportable 05/27/17 22:00 Helmet Cells Not Reportable 05/27/17 22:00 [place] Bodies Not Reportable 05/27/17 22:00 [place] Rings Not Reportable 05/27/17 22:00 [place] Cells Not Reportable 05/27/17 22:00 Bite Cells Not Reportable 05/27/17 22:00 Crenated Cell Not Reportable 05/27/17 22:00 Elliptocytes Not Reportable 05/27/17 22:00 Acanthocytes (Spur) Not Reportable 05/27/17 22:00 Rouleaux Not Reportable 05/27/17 22:00 Hemoglobin C Crystals Not Reportable 05/27/17 22:00 Schistocytes Not Reportable 05/27/17 22:00 Malaria parasites Not Reportable 05/27/17 22:00 [place] Bodies Not Reportable 05/27/17 22:00 Hem Pathologist Commnt No 05/27/17 22:00 PT 18.9 Sec. (12.2-14.9) H 06/01/17 06:00 INR 1.50 (0.87-1.13) H 06/01/17 06:00 Sodium 133 mmol/L (137-145) L D 05/31/17 05:15 Potassium 5.0 mmol/L (3.6-5.0) D 05/31/17 05:15 Chloride 93.1 mmol/L (98-107) L 05/31/17 05:15 Carbon Dioxide 29 mmol/L (22-30) 05/31/17 05:15 Anion Gap 16 mmol/L 05/31/17 05:15 BUN 24 mg/dL (7-17) H 05/31/17 05:15 Creatinine 0.7 mg/dL (0.7-1.2) 05/31/17 05:15 Estimated GFR > 60 ml/min 05/31/17 05:15 BUN/Creatinine Ratio 34.28 % 05/31/17 05:15 Glucose 127 mg/dL (65-100) H 05/31/17 05:15 POC Glucose 145 (70-105) H 06/01/17 07:19 Calcium 9.9 mg/dL (8.4-10.2) D 05/31/17 05:15 Magnesium 2.70 mg/dL (1.7-2.3) H 05/31/17 05:15 Total Bilirubin 0.40 mg/dL (0.1-1.2) 05/27/17 22:00 AST 19 units/L (5-40) 05/27/17 22:00 ALT 12 units/L (7-56) 05/27/17 22:00 Alkaline Phosphatase 44 units/L (35-129) 05/27/17 22:00 Total Creatine Kinase 138 units/L (30-135) H 05/28/17 13:46 CK-MB (CK-2) 2.7 ng/mL (0.0-4.0) 05/28/17 13:46 CK-MB (CK-2) Rel Index 1.9 (0-4) 05/28/17 13:46 Troponin T < 0.010 ng/mL (0.00-0.029) 05/28/17 13:46 Total Protein 6.5 g/dL (6.3-8.2) 05/27/17 22:00 Albumin 3.1 g/dL (3.9-5) L 05/27/17 22:00 Albumin/Globulin Ratio 0.9 % 05/27/17 22:00 TSH 0.440 mlU/mL (0.270-4.200) 05/29/17 04:00 Free T4 1.03 ng/dL (0.76-1.46) 05/29/17 04:00 Urine Color Yellow (Yellow) 05/27/17 Unknown Urine Turbidity Clear (Clear) 05/27/17 Unknown Urine pH 7.0 (5.0-7.0) 05/27/17 Unknown Ur Specific Harper 1.015 (1.003-1.030) 05/27/17 Unknown Urine Protein <15 mg/dl mg/dL (Negative) 05/27/17 Unknown Urine Glucose (UA) Neg mg/dL (Negative) 05/27/17 Unknown Urine Ketones Neg mg/dL (Negative) 05/27/17 Unknown Urine Blood Neg (Negative) 05/27/17 Unknown Urine Nitrite Neg (Negative) 05/27/17 Unknown Urine Bilirubin Neg (Negative) 05/27/17 Unknown Urine Urobilinogen < 2.0 mg/dL (<2.0) 05/27/17 Unknown Ur Leukocyte Esterase Neg (Negative) 05/27/17 Unknown Urine WBC (Auto) < 1.0 /HPF (0.0-6.0) 05/27/17 Unknown Urine RBC (Auto) < 1.0 /HPF (0.0-6.0) 05/27/17 Unknown U Epithel Cells (Auto) 1.0 /HPF (0-13.0) 05/27/17 Unknown Digoxin 0.4 ng/mL (0.9-2.0) L 05/28/17 13:46
[2017-06-01] MEDS: PLAVIX PO SCH (11:42)
[2017-06-01] MEDS: EFFEXOR PO SCH (11:42)
[2017-06-01] MEDS: NORVASC PO SCH (11:42)
[2017-06-01] MEDS: BABY ASPIRIN PO SCH (11:42)
[2017-06-01] MEDS: LASIX PO SCH (11:42)
[2017-06-01] MEDS: IMDUR PO SCH (11:43)
[2017-06-01] MEDS: MIRALAX 3350 PO SCH (11:44)
--- NOTE | 2017-06-01 12:44 | Progress Note ---
Assessment and Plan Lexiscan stress MPI today. - Patient Problems (1) Atypical chest pain Current Visit: Yes Status: Acute (2) Mobitz type 1 second degree AV block Current Visit: Yes Status: Acute (3) CAD (coronary artery disease) Current Visit: Yes Status: Chronic Qualifiers: Coronary Disease-Associated Artery/Lesion type: [place] artery [place] vs. transplanted heart: N Associated angina: A (4) Stented coronary artery Current Visit: Yes Status: Chronic (5) Renal transplant recipient Current Visit: Yes Status: Chronic (6) MVP (mitral valve prolapse) Current Visit: Yes Status: Chronic (7) H/O deep venous thrombosis Current Visit: Yes Status: Chronic (8) CKD (chronic kidney disease) Current Visit: Yes Status: Chronic Qualifiers: Chronic kidney disease stage: C (9) Lupus Current Visit: Yes Status: Chronic Qualifiers: Systemic lupus erythematosus type: S Systemic lupus erythematosus organ involvement: S (10) Hypertension Current Visit: Yes Status: Chronic Qualifiers: Hypertension type: essential hypertension Qualified Code(s): I10 - Essential (primary) hypertension (11) Diabetes mellitus Current Visit: Yes Status: Chronic Qualifiers: Diabetes mellitus type: type 2 Diabetes mellitus complication status: D Diabetes mellitus complication detail: D Diabetic retinopathy severity: D Proliferative retinopathy type: P Diabetes mellitus macular edema: D Diabetes mellitus long-term insulin use: D Laterality: L Chronic kidney disease stage: C Subjective Date of service: 06/01/17 Principal diagnosis: Atypical chest pain, Intermittent type 1 2nd AVB, CAD s/p PCI, Lupus, CKD Interval history: No chest pain this morning. Objective Vital Signs Last Vital Signs Temp 99.5 F 05/31/17 21:00 Pulse 74 06/01/17 11:43 Resp 18 06/01/17 03:20 BP 132/82 06/01/17 11:43 Pulse Ox 98 05/31/17 22:00 - Physical Examination General: No Apparent Distress HEENT: Positive: EOMI, Normocephaly, Mucus Membranes Moist Neck: Positive: neck supple, trachea midline Cardiac: Positive: Reg Rate and Rhythm, S1/S2 Lungs: Positive: clear to auscultation Neuro: Positive: Grossly Intact Abdomen: Positive: Soft, Active Bowel Sounds. Negative: Tender Skin: Positive: Clear. Negative: Rash Musculoskeletal: Normal Range of Motion Extremities: Absent: edema - Labs and Meds Coagulation 06/01/17 Range/Units 06:00 PT 18.9 H (12.2-14.9) Sec. INR 1.50 H (0.87-1.13) - Imaging and Cardiology EKG: image reviewed Echo: report reviewed (12/2014 showed EF 55%, impaired relaxation, moderate to severe MVP, mild MR, mild to moderate TR, RVSP 24mmHg, moderate [place].) Cardiac cath: report reviewed (12/2012 revealed patent circumflex stent and LAD disease which was not hemodynamically significant by FFR.) - Telemetry EKG Rhythm: Sinus Rhythm - EKG Sinus rhythms and dysrhythmias: sinus rhythm AV and intraventricular conduction: 1 AV block
[2017-06-01] MEDS: COUMADIN PO SCH (16:55)
[2017-06-01] MEDS: AMBIEN PO SCH (22:00)
[2017-06-01] MEDS: MILK OF MAGNESIA PO PRN (22:41)
--- NOTE | 2017-06-02 00:50 | Treadmill Report ---
LEXISCAN STRESS TEST REPORT REASON FOR STUDY: Chest pain. STRESS TEST PROTOCOL: The patient received 0.4 mg of Lexiscan intravenously over 10 seconds. Tc-99m tetrofosmin was subsequently injected. Baseline EKG, sinus bradycardia. Lexiscan EKG, she developed diffuse T-wave abnormalities. No chest pain. No arrhythmias. IMPRESSION: Nondiagnostic due to nonspecific EKG abnormalities. Nuclear imaging report to follow. [facility]# [id number] AGO/NTS
--- NOTE | 2017-06-02 02:41 | Treadmill Report ---
THALLIUM REPORT REASON FOR STUDY: Chest pain. IMAGING PROTOCOL: The patient received TC99m Tetrofosmin for stress and rest imaging. The patient received 4 mCi of Thallium 201 for rest imaging and 26 mCi of technetium-99 Tetrofosmin for stress imaging. Imaging for all procedures was completed 30-90 minutes following the initial injection of Technetium 99m Tetrofosmin. SPECT imaging in the 180 degree arc was performed in the right anterior oblique projection. Computerized reconstruction of the images was performed for analysis. NUCLEAR IMAGING RESULTS: Technically limited study due to soft tissue attenuation artifact. Normal left ventricular cavity size with no change from stress to rest. Distribution of radionuclide within the left ventricle revealed a small area of photo-induction involving the anterior wall. The degree of photo-induction is mild to moderate. Rest imaging does not show any significant improvement in this defect. There is also a small area of photo-induction involving the apex. The degree of photo-induction is mild. Rest imaging showed complete improvement in this defect. In addition, there is a small area of photo-induction involving the inferior wall. The degree of photo-induction is moderate. Rest imaging does not show any significant improvement in this defect. Gated SPECT imaging revealed normal global LV systolic function with no significant wall motion abnormalities. The calculated left ventricular ejection fraction is 70%. IMPRESSION: Technically limited study. Small fixed anterior wall defect. Small reversible apical defect. Small fixed inferior wall defect. Normal global LV systolic function with no significant wall motion abnormalities. EF 70%. These findings suggest a small area of prior infarction with minimal residual ischemia in the left anterior descending coronary artery territory. In addition, there is suggestion of a small area of prior infarction in the right coronary artery territory. JOB# [id number] [facility]/NTS
[2017-06-02] MEDS: DILAUDID IV PRN ×4 (02:49→18:06)
[2017-06-02] MEDS: SYNTHROID PO SCH (05:56)
[2017-06-02 06:28] LABS: INR 1.48 (0.87-1.13)
[2017-06-02] MEDS: PERCOCET 5/325 PO SCH ×2 (07:58→13:59)
[2017-06-02] MEDS: ROXICODONE PO SCH ×2 (07:59→13:59)
[2017-06-02] MEDS: NOVOLOG SUB-Q SCH ×3 (08:00→17:28)
--- NOTE | 2017-06-02 09:43 | Progress Note ---
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 She has been seen in our office by Dr. Jain (was last seen ). Pt was admitted directly to hospitalist service at the request of Dr. Patel for evaluation of suspected SLE flare. She presented with c/o generalized pain for the past several weeks, fever and chills since yesterday AM , and precordial chest pain since yesterday AM. She presented to Dr. Patel with these complaints yesterday and was then admitted to [facility]. Cardiology has been consulted for "cardiomyopathy". On evaluation, pt denies any complaints. This AM, pt was noted to have intermittent Wenckebach AV block on telemetry. Pt asymptomatic with stable VS. LHC done 12/2012 revealed patent circumflex stent and LAD disease which was not hemodynamically significant by FFR. Echo done 2014 showed EF 55%, impaired relaxation, moderate to severe MVP, mild MR, mild to moderate TR, RVSP 24mmHg, moderate DC. -SLE flare: iv steriods -Chronic DVT with supratherapeutic INR: Warfarin today -Chest pain, msk due to costochondritis suspected: Cardiology is following -AV mobitz type 1: telemetry -Accelerated Hypertension: iv antihypertensive prn -Hypokalemia: replaced -IDDM with hyperglycemia: add ssi, ada diet -DLP -DVT prophylaxis: on Warfarin Hospitalist Physical - Physical exam Narrative exam: Gen Appearance: Not in acute distress, HEENT: normocephalic, atraumatic Neck: supple, no JVD Lungs: clear to auscultation bilaterally, no crackles or wheezes Heart: S1 and S2 regular, no murmurs or gallop Abdomen: Soft , non tender, non distended, normal bowel sounds Extremity: No edema, clubbing or cyanosis Neuro : Awake, alert,oriented x 3, moves all ext psych: Normal mood - Constitutional Vitals: Temp Pulse Resp BP Pulse Ox 98.9 F 77 18 140/81 99 06/01/17 22:00 06/01/17 22:00 06/02/17 07:17 06/01/17 22:00 06/01/17 22:00 General appearance: Present: no acute distress Results - Labs CBC & Chem 7: 05/31/17 05:15 05/31/17 05:15 Labs: Laboratory Last Values WBC 9.0 K/mm3 (4.5-11.0) 05/31/17 05:15 RBC 3.52 M/mm3 (3.65-5.03) L 05/31/17 05:15 Hgb 11.3 gm/dl (10.1-14.3) 05/31/17 05:15 Hct 33.8 % (30.3-42.9) 05/31/17 05:15 MCV 96 fl (79-97) 05/31/17 05:15 MCH 32 pg (28-32) 05/31/17 05:15 MCHC 34 % (30-34) 05/31/17 05:15 RDW 15.3 % (13.2-15.2) H 05/31/17 05:15 Plt Count 209 K/mm3 (140-440) 05/31/17 05:15 Add Manual Diff Complete 05/27/17 22:00 Total Counted 100 05/27/17 22:00 Seg Neutrophils % Photo Technologist 05/27/17 22:00 Seg Neuts % (Manual) 79.0 % (40.0-70.0) H 05/27/17 22:00 Band Neutrophils % 9.0 % 05/27/17 22:00 Lymphocytes % (Manual) 6.0 % (13.4-35.0) L 05/27/17 22:00 Reactive Lymphs % (Man) 0 % 05/27/17 22:00 Monocytes % (Manual) 5.0 % (0.0-7.3) 05/27/17 22:00 Eosinophils % (Manual) 1.0 % (0.0-4.3) 05/27/17 22:00 Basophils % (Manual) 0 % (0.0-1.8) 05/27/17 22:00 Metamyelocytes % 0 % 05/27/17 22:00 Myelocytes % 0 % 05/27/17 22:00 Promyelocytes % 0 % 05/27/17 22:00 Blast Cells % 0 % 05/27/17 22:00 Nucleated RBC % Not Reportable 05/27/17 22:00 Seg Neutrophils # Man 6.5 K/mm3 (1.8-7.7) 05/27/17 22:00 Band Neutrophils # 0.7 K/mm3 05/27/17 22:00 Lymphocytes # (Manual) 0.5 K/mm3 (1.2-5.4) L 05/27/17 22:00 Abs React Lymphs (Man) 0.0 K/mm3 05/27/17 22:00 Monocytes # (Manual) 0.4 K/mm3 (0.0-0.8) 05/27/17 22:00 Eosinophils # (Manual) 0.1 K/mm3 (0.0-0.4) 05/27/17 22:00 Basophils # (Manual) 0.0 K/mm3 (0.0-0.1) 05/27/17 22:00 Metamyelocytes # 0.0 K/mm3 05/27/17 22:00 Myelocytes # 0.0 K/mm3 05/27/17 22:00 Promyelocytes # 0.0 K/mm3 05/27/17 22:00 Blast Cells # 0.0 K/mm3 05/27/17 22:00 WBC Morphology Not Reportable 05/27/17 22:00 Hypersegmented Neuts Not Reportable 05/27/17 22:00 Hyposegmented Neuts Not Reportable 05/27/17 22:00 Hypogranular Neuts Not Reportable 05/27/17 22:00 Smudge Cells Not Reportable 05/27/17 22:00 Toxic Granulation Not Reportable 05/27/17 22:00 Toxic Vacuolation Not Reportable 05/27/17 22:00 Dohle Bodies Not Reportable 05/27/17 22:00 Pelger-Huet Anomaly Not Reportable 05/27/17 22:00 Fani Rods Not Reportable 05/27/17 22:00 Platelet Estimate Consistent w auto 05/27/17 22:00 Clumped Platelets Not Reportable 05/27/17 22:00 Plt Clumps, EDTA Not Reportable 05/27/17 22:00 Large Platelets Not Reportable 05/27/17 22:00 Giant Platelets Not Reportable 05/27/17 22:00 Platelet Satelliting Not Reportable 05/27/17 22:00 Plt Morphology Comment Not Reportable 05/27/17 22:00 RBC Morphology Normal 05/27/17 22:00 Dimorphic RBCs Not Reportable 05/27/17 22:00 Polychromasia Not Reportable 05/27/17 22:00 Hypochromasia Not Reportable 05/27/17 22:00 Poikilocytosis Not Reportable 05/27/17 22:00 Anisocytosis Not Reportable 05/27/17 22:00 Microcytosis Not Reportable 05/27/17 22:00 Macrocytosis Not Reportable 05/27/17 22:00 Spherocytes Not Reportable 05/27/17 22:00 Pappenheimer Bodies Not Reportable 05/27/17 22:00 Sickle Cells Not Reportable 05/27/17 22:00 Target Cells Not Reportable 05/27/17 22:00 Tear Drop Cells Not Reportable 05/27/17 22:00 Ovalocytes Not Reportable 05/27/17 22:00 Helmet Cells Not Reportable 05/27/17 22:00 [place] Bodies Not Reportable 05/27/17 22:00 [place] Rings Not Reportable 05/27/17 22:00 Sushant Cells Not Reportable 05/27/17 22:00 Bite Cells Not Reportable 05/27/17 22:00 Crenated Cell Not Reportable 05/27/17 22:00 Elliptocytes Not Reportable 05/27/17 22:00 Acanthocytes (Spur) Not Reportable 05/27/17 22:00 Rouleaux Not Reportable 05/27/17 22:00 Hemoglobin C Crystals Not Reportable 05/27/17 22:00 Schistocytes Not Reportable 05/27/17 22:00 Malaria parasites Not Reportable 05/27/17 22:00 [place] Bodies Not Reportable 05/27/17 22:00 Hem Pathologist Commnt No 05/27/17 22:00 PT 18.7 Sec. (12.2-14.9) H 06/02/17 06:05 INR 1.48 (0.87-1.13) H 06/02/17 06:05 Sodium 133 mmol/L (137-145) L D 05/31/17 05:15 Potassium 5.0 mmol/L (3.6-5.0) D 05/31/17 05:15 Chloride 93.1 mmol/L (98-107) L 05/31/17 05:15 Carbon Dioxide 29 mmol/L (22-30) 05/31/17 05:15 Anion Gap 16 mmol/L 05/31/17 05:15 BUN 24 mg/dL (7-17) H 05/31/17 05:15 Creatinine 0.7 mg/dL (0.7-1.2) 05/31/17 05:15 Estimated GFR > 60 ml/min 05/31/17 05:15 BUN/Creatinine Ratio 34.28 % 05/31/17 05:15 Glucose 127 mg/dL (65-100) H 05/31/17 05:15 POC Glucose 144 (70-105) H 06/02/17 07:17 Calcium 9.9 mg/dL (8.4-10.2) D 05/31/17 05:15 Magnesium 2.70 mg/dL (1.7-2.3) H 05/31/17 05:15 Total Bilirubin 0.40 mg/dL (0.1-1.2) 05/27/17 22:00 AST 19 units/L (5-40) 05/27/17 22:00 ALT 12 units/L (7-56) 05/27/17 22:00 Alkaline Phosphatase 44 units/L (35-129) 05/27/17 22:00 Total Creatine Kinase 138 units/L (30-135) H 05/28/17 13:46 CK-MB (CK-2) 2.7 ng/mL (0.0-4.0) 05/28/17 13:46 CK-MB (CK-2) Rel Index 1.9 (0-4) 05/28/17 13:46 Troponin T < 0.010 ng/mL (0.00-0.029) 05/28/17 13:46 Total Protein 6.5 g/dL (6.3-8.2) 05/27/17 22:00 Albumin 3.1 g/dL (3.9-5) L 05/27/17 22:00 Albumin/Globulin Ratio 0.9 % 05/27/17 22:00 TSH 0.440 mlU/mL (0.270-4.200) 05/29/17 04:00 Free T4 1.03 ng/dL (0.76-1.46) 05/29/17 04:00 Urine Color Yellow (Yellow) 05/27/17 Unknown Urine Turbidity Clear (Clear) 05/27/17 Unknown Urine pH 7.0 (5.0-7.0) 05/27/17 Unknown Ur Specific [place] 1.015 (1.003-1.030) 05/27/17 Unknown Urine Protein <15 mg/dl mg/dL (Negative) 05/27/17 Unknown Urine Glucose (UA) Neg mg/dL (Negative) 05/27/17 Unknown Urine Ketones Neg mg/dL (Negative) 05/27/17 Unknown Urine Blood Neg (Negative) 05/27/17 Unknown Urine Nitrite Neg (Negative) 05/27/17 Unknown Urine Bilirubin Neg (Negative) 05/27/17 Unknown Urine Urobilinogen < 2.0 mg/dL (<2.0) 05/27/17 Unknown Ur Leukocyte Esterase Neg (Negative) 05/27/17 Unknown Urine WBC (Auto) < 1.0 /HPF (0.0-6.0) 05/27/17 Unknown Urine RBC (Auto) < 1.0 /HPF (0.0-6.0) 05/27/17 Unknown U Epithel Cells (Auto) 1.0 /HPF (0-13.0) 05/27/17 Unknown Digoxin 0.4 ng/mL (0.9-2.0) L 05/28/17 13:46
[2017-06-02] MEDS: NORVASC PO SCH (10:15)
[2017-06-02] MEDS: EFFEXOR PO SCH (10:15)
[2017-06-02] MEDS: LASIX PO SCH (10:15)
[2017-06-02] MEDS: PLAVIX PO SCH (10:15)
[2017-06-02] MEDS: BABY ASPIRIN PO SCH (10:15)
[2017-06-02] MEDS: MIRALAX 3350 PO SCH (10:15)
[2017-06-02] MEDS: IMDUR PO SCH (10:16)
--- NOTE | 2017-06-02 14:36 | Progress Note ---
Assessment and Plan Assessment: Chest pain, atypical - currently resolved; ECG with NAF. Abnormal stress test Lupus CAD, s/p PCI Intermittent Wenckebach AV block - VSS; pt asymptomatic; no bradyarrhythmias noted in >24HR. HTN HLP DM CKD Hypokalemia / hypocalcemia - repleted Hypothyroidism Chronic DVT - anticoagulated on coumadin Moderate to severe MVP - per echo 12/2014 s/p renal transplant Plan: S/p lexiscan MPI yesterday which suggested small area of prior infarction with minimal residual ischemia in the LAD coronary artery territory and small area of infarction in the RCA territory. Cont with medical management. Currently stable cardiac status. Pt may discharge home from cardiology standpoint. Recommend follow up in our office with Orin Ewing NP, within 1-2 weeks of hospital discharge ([phone]). Assessment and plan reviewed with pt at bedside. The patient has been seen in conjunction with Dr. Zepeda who agrees with the assessment and plan of care. Subjective Date of service: 06/02/17 Principal diagnosis: Atypical chest pain, Intermittent type 1 2nd AVB, CAD s/p PCI, Lupus, CKD Interval history: Pt resting comfortably in bed, denies any cardiac complaints. Pt states chest pain has fully resolved since initiation of Imdur. VSS. No bradyarrhythmias noted overnight. Objective Last Vital Signs Temp 99 F 06/02/17 10:00 Pulse 78 06/02/17 10:16 Resp 18 06/02/17 10:00 BP 133/73 06/02/17 10:16 Pulse Ox 98 06/02/17 10:00 - Physical Examination General: No Apparent Distress HEENT: Positive: EOMI, Normocephaly, Mucus Membranes Moist Neck: Positive: neck supple, trachea midline Cardiac: Positive: Reg Rate and Rhythm, S1/S2 Lungs: Positive: clear to auscultation Neuro: Positive: Grossly Intact Abdomen: Positive: Soft, Active Bowel Sounds. Negative: Tender Skin: Positive: Clear. Negative: Rash Musculoskeletal: Normal Range of Motion Extremities: Absent: edema - Labs and Meds Coagulation 06/02/17 Range/Units 06:05 PT 18.7 H (12.2-14.9) Sec. INR 1.48 H (0.87-1.13) - Imaging and Cardiology EKG: image reviewed Echo: report reviewed (12/2014 showed EF 55%, impaired relaxation, moderate to severe MVP, mild MR, mild to moderate TR, RVSP 24mmHg, moderate [place].) Cardiac cath: report reviewed (12/2012 revealed patent circumflex stent and LAD disease which was not hemodynamically significant by FFR.) - EKG Sinus rhythms and dysrhythmias: sinus rhythm AV and intraventricular conduction: 1 AV block
[2017-06-02] MEDS: COUMADIN PO SCH (17:29)
[2017-06-02 17:37] VITALS: BP 135/80
--- NOTE | 2017-06-02 17:51 | Discharge Summary ---
Providers - Providers Date of Admission: 05/27/17 17:01 Date of discharge: 06/02/17 Attending physician: GREGORIA RENDON 05/27/17 18:56 Consult to Physician [CONS] Routine Consulting Provider: FOSTER ALMEIDA Reason For Exam: sle flare Place consult to:: hematology Notified:: yes Phone number called:: [phone] Was contact made?: Yes If yes, spoke with:: dr. almeida Time called:: 19:33 Comment:: mirza 05/27/17 18:57 Consult to Physician [CONS] Routine Consulting Provider: NOAH BAILEY Reason For Exam: cardiomyopathy Place consult to:: answering service Notified:: yes Phone number called:: [phone] If yes, spoke with:: keyanna Time called:: 19:37 Comment:: mirza Primary care physician: FOSTER ALMEIDA Hospitalization Condition: Fair Disposition: DC-01 TO HOME OR SELFCARE Core Measure Documentation - Palliative Care Palliative Care/ Comfort Measures: Not Applicable Exam - Constitutional Vitals: Temp Pulse Resp BP Pulse Ox 98.9 F 73 18 135/80 2 L 06/02/17 16:20 06/02/17 16:20 06/02/17 16:20 06/02/17 16:20 06/02/17 16:20 Plan Activity: advance as tolerated Diet: low fat, low cholesterol, low salt, diabetic Additional Instructions: 1.Follow up with Dr. Almeida in 1-2 days. 2.Check INR at Dr. Almeida's office on Thursday06/05/17. 3.Follow up with Orin Ewing [facility] in 1-2 weeks. Follow up with: FOSTER ALMEIDA DO [Primary Care Provider] - 7 Days Forms: Warfarin Discharge Instruction Prescriptions: Prednisone [predniSONE 10 mg (6-Day Pack, 21 Tabs)] 10 mg PO .TAPER #1 tab.ds.pk
== END 2017-06-02 19:50 | disposition home health service (06) | DRG 546 ==
LOC: UNDOADMIN 15:45 → 3A 15:45 → CC2 17:01
PROVIDERS: ADMIT Internal Medicine; ATTEND Internal Medicine
DX: M32.9 Systemic lupus erythematosus, unspecified (principal); Z94.0 Kidney transplant status; E78.5 Hyperlipidemia, unspecified; I25.10 Atherosclerotic heart disease of native coronary artery without angina pectoris; I44.1 Atrioventricular block, second degree; M94.0 Chondrocostal junction syndrome [Tietze]; E11.65 Type 2 diabetes mellitus with hyperglycemia; Z88.0 Allergy status to penicillin; E03.9 Hypothyroidism, unspecified; Z82.49 Family history of ischemic heart disease and other diseases of the circulatory system; Z79.82 Long term (current) use of aspirin; I12.9 Hypertensive chronic kidney disease with stage 1 through stage 4 chronic kidney disease, or unspecified chronic kidney disease; E11.22 Type 2 diabetes mellitus with diabetic chronic kidney disease; N18.9 Chronic kidney disease, unspecified; E87.6 Hypokalemia; E83.51 Hypocalcemia
CPT/HCPCS: 36415; 71010; 78452; 80048; 80053; 80162; 81001; 82550; 82553; 82962; 83735; 84439; 84443; 84484; 85007; 85025; 85027; 85610; 93005; 93010; 93017; 93306; A9502; J1170; J1815; J2405; J2785; J2930